=== PATIENT | female | born 1980 | race Caucasian/White ===

== ENCOUNTER 2022-05-18 00:58 | Day surgery (SDC) | payer OTHER, SELFPAY ==
[2022-05-14 09:22] VITALS: BMI 41.5
--- NOTE | 2022-05-14 09:27 | PC.NURSE ---
Report to the Outpatient Waiting Room, entrance under the green pavilion located off [facility], at time 12:30 on date 05/18/22. Planned Procedure Time: 2:30. Time changes happen often and if your time is changed the preop area will call you the afternoon before. - You and your visitor will be asked to self-screen and do not enter if you have any COVID symptoms. - Only one visitor is requested with a max of two and NO children visitors are allowed at this time. - The patient visitor may be requested to leave or wait in car when not with patient due to distancing restrictions. - A mask is optional within the hospital at this time. Patients may have clear liquids (water, carbonated beverages, clear teas, apple juice) until 3 hours prior to surgery (11:30) with a maximum of 20 ounces. - No food from midnight until time of surgery Take the following medications with a SIP of water the morning of surgery: ESCITALOPRAM, BUSPIRONE DO NOT STOP ANY OF YOUR OTHER PRESCRIPTION MEDICATIONS PRIOR TO SURGERY EXCEPT THE FOLLOWING Medications to discontinue per physician: N/A Date to take last dose: N/A Please no make-up, nail senegalese, hairspray, perfume, deodorant, or body powder the day of surgery. No jewelry (including any body piercings) or valuables the day of surgery, leave them at home. Please take a shower or bath the night before, or the morning of, surgery with an antibacterial soap. Wear comfortable, loose fitting clothing. - Jewelry must be removed prior to entering the operating room. Rings and piercings that are not removed may be cut off. - The hospital will not accept responsibility for valuables. - Please leave all valuables, including medications, at home the day of surgery. If you are going home after surgery, a licensed parts driver must drive you home. - NO public transportation without another adult if you receive anesthesia. - We recommend that an adult stay with you for 24 hours following discharge. - We also recommend that you do not drive, make important decision, drink alcoholic beverages, or take any drugs that were not prescribed by your health care provider for at least 24 hours after your discharge time. Follow any additional instructions given to you from your surgeon. If you or anyone in your household have experienced Covid symptoms in the past week, please notify your surgeon or the nurse liaison at the phone number below for possible testing. Telephone instructions given to PT - RHIANNON AYOUB and asked if any additional questions and then verbalized understanding. Patient advised to call surgeon office or pre surgery nurse liaison [phone] if any additional questions.
--- NOTE | 2022-05-16 16:30 | PM.IMHP ---
H&P: HPI History of Present Illness Date/Time: 05/16/22 16:30 Chief Complaint: Pelvic pain with right ovarian cyst Narrative: This is a 41-year-old female 2 para 2 admitted for laparoscopy with right ovarian cystectomy and possible right salpingo-oophorectomy. She has had pain discomfort and dyspareunia. Ultrasound shows right ovarian cyst. Risks and benefits including but not exclusive of , aspiration pneumonia, bleeding, transfusion, perforation injury to bowel, bladder, ureters, or other internal organs with need for open laparotomy repeated reviewed. She had all questions answered. She asked to proceed FOR[facility]LY [facility], [facility] Social History Social History Years smoked: 25 Smoking status: Current every day smoker Tobacco type: cigarettes Alcohol intake: current Alcohol use details: RARE Substance use: current Substance use type: marijuana Living arrangements: with family Additional living arrangements comments: CHILDREN Spiritual care concerns: No Meds Home Medications and Allergies Home Medications Medication Instructions Recorded Confirmed Type buspirone 5 mg tablet 5 mg PO DAILY 05/14/22 05/14/22 History escitalopram oxalate 20 mg tablet 20 mg PO DAILY 05/14/22 05/14/22 History omeprazole 20 mg tablet,delayed 20 mg PO DAILY 05/14/22 05/14/22 History release Allergies Allergy/AdvReac Type Severity Reaction Status Date / Time No Known Allergies Allergy Verified 05/14/22 09:20 Exam Const: General: cooperative, healthy appearing and comfortable Nutritional Appearance: overweight Orientation/consciousness: oriented to person, oriented to place and oriented to time Resp: Effort & Inspection: normal respiratory effort Cardio: Rate: regular rate Rhythm: regular rhythm Heart sounds: S1 normal heart sound present and S2 normal heart sound present GI: Inspection: normal to inspection Auscultation: normal bowel sounds : External Female Exam: normal external appearance Speculum Exam - Vagina: normal appearance of the vagina Speculum Exam - Cervix: normal appearance of the cervix Bimanual exam- vagina & uterus: non-tender Bimanual Exam- Adnexa, other: Adnexal mass present on the right tender Assessment and Plan Assessment and plan (1) Pelvic pain: Code(s): R10.2 - Pelvic and perineal pain Status: Acute (2) Right ovarian cyst: Code(s): N83.201 - Unspecified ovarian cyst, right side Status: Acute Plan Laparoscopy with right ovarian cystectomy and possible right salpingo-oophorectomy
[2022-05-18] VITALS (7 sets, daily range): BP systolic 113–153; BP diastolic 58–93; PULSE 49–86; RESP 12–20; TEMP 36.1–36.5; O2SAT 95–99
--- NOTE | 2022-05-18 05:26 | WPDHPUPDATE1 ---
History and Physical Update Update Date/Time: 05/18/22 05:26 History and Physical has been reviewed, including an updated exam of the patient. There are NO changes in the patient's condition. Risks, benefits, and alternatives have been discussed and questions answered. Patient agrees to proceed with procedure.
[2022-05-18] MEDS: ACETAMINOPHEN 500 MG TABLET 1000 MG PO (13:10)
[2022-05-18] MEDS: KETOROLAC 15 MG/ML VIAL (*BKC) IV PUSH (13:13)
[2022-05-18] MEDS: LACTATED RINGERS 1,000 ML 30 ML IV CONT ×2 (13:14→15:07)
[2022-05-18] MEDS: SCOPOLAMINE 1.5 MG PATCH TRANSDERM (13:14)
--- NOTE | 2022-05-18 13:30 | WPDANESEPPF ---
Anes - Initial Pre Proc Eval Procedure: Operation Date: 05/18/22 14:30 Proposed Procedures p Laparoscopic Right Ovarian Cystectomy - Raz Lopes MD Date/Time: 05/18/22 13:30 Surgeon: Raz Lopes MD Pre Op Diagnosis: Rt Ovarian Cyst, Pelvic Pain Patient Data Age: 41 Gender: F Height: 1.7 m Weight: 120.2 kg Allergies Allergy/AdvReac Type Severity Reaction Status Date / Time No Known Allergies Allergy Verified 05/14/22 09:20 Home Medications Medication Instructions Recorded Confirmed Type buspirone 5 mg tablet 5 mg PO DAILY 05/14/22 05/18/22 History escitalopram oxalate 20 mg tablet 20 mg PO DAILY 05/14/22 05/18/22 History omeprazole 20 mg tablet,delayed 20 mg PO DAILY 05/14/22 05/18/22 History release hydrocodone 5 mg-acetaminophen 325 1 tablet PO Q4H PRN pain #20 tabs 05/18/22 Rx mg tablet Patient hx anesthesia problems: none Family hx anesthesia problems: none Results Review: All pre-operative results and documents have been reviewed as part of the pre-operative evaluation. [facility] Past Medical History Medical History (Updated 05/18/22 @ 13:30 by Raz Reeder MD) Morbid obesity Social History Social History Years smoked: 25 Smoking status: Current every day smoker Tobacco type: cigarettes Alcohol intake: current Alcohol use details: RARE Substance use: current Substance use type: marijuana Living arrangements: with family Additional living arrangements comments: CHILDREN Spiritual care concerns: No Anes - Eval Final PreProcedure Day of Procedure 05/18/22 13:30 Patient weight: morbidly obese Heart: regular rate and rhythm Lungs: clear to auscultation Airway: Mallampati scale class II Neurological: alert and oriented Last oral intake: >/= 8 hours ASA classification: III Emergent: no Anesthetic plan: proceed Anesthesia type and monitoring: general ETT and standard monitoring Results Review: All pre-operative results and documents have been reviewed as part of the pre-operative evaluation. Informed Consent: The patient's anesthetic plan and its attendant risks and benefits were discussed with the patient/family/POA. Questions were solicited and answers provided to the satisfaction of the patient/family/POA.
--- NOTE | 2022-05-18 14:30 | W.PM.PROC2 ---
Procedure Note - Detailed Date of Procedure 05/18/22 Pre-op Diagnosis Rt Ovarian Cyst, Pelvic Pain Post-op Diagnosis Other (Bilateral ovarian cyst pelvic adhesions) Procedure Performed laparoscopic destruction of bilateral ovarian cyst Surgeon Raz Lopes MD Anesthesia General Indications is a 41-year-old female with pelvic pain dyspareunia and right ovarian cyst seen on ultrasound Findings uterus was extensively adherent to the anterior abdominal wall. There were bilateral follicular cysts present. Description of Procedure The patient was prepped draped in normal sterile fashion placed in the dorsal lithotomy position. Under excellent general trach anesthesia weighted speculum placed in posterior fornix vagina. Anterior lip of the cervix grasped with single-tooth tenaculum and the Spencer's cannula inserted the cervix. These 2 were attached used later for uterine uterine manipulation. The bladder was emptied of clear urine. The weighted speculum was removed and gloves were changed. An infraumbilical incision made the Veress needle passed in the abdomen. Abdomen filled with CO2 gas [id number]. The 5mm trocar advanced under direct visualization with the optic scope and no injury seen. Patient placed in Trendelenburg and the uterus was noted be markedly adherent anteriorly with the uterus. A left lower quadrant incision made the 5mm trocar advanced under direct visualization assuring no injury. Visualization showed large ovarian cyst bilaterally. These were sharply opened and drained of follicular fluid. The uterus was markedly adherent to the anterior portion of the abdominal wall which may account for a lot of her pelvic pain. Irrigation was undertaken to clear. The lower site removed. The gas removed from the abdomen. The upper site removed. The incisions closed with 4 Monocryl and glue. The patient was awakened went to recovery in satisfactory condition. All sponge, needle, instrument counts were correct. There were no immediate complications Estimated Blood Loss 5 Drains No Packing No Pathology None sent Complications No immediate complications Condition Stable Disposition PACU
[2022-05-18] MEDS: fentaNYL CITRATE INJ (*CRX) 100 MCG/2 ML VIAL 25 MCG IV PUSH ×4 (14:50→15:05)
[2022-05-18] MEDS: oxyCODONE HCL (*CRX) 5 MG TAB IR PO (15:36)
== END 2022-05-18 16:10 | disposition home or self-care (01) ==
PROVIDERS: PCP Physician Assistant; Visit Provider Obstetrics & Gynecology
PROC: (CPT 49320; principal; 2022-05-18 14:30)
DX: N83.02 Follicular cyst of left ovary (principal); N83.01 Follicular cyst of right ovary; R10.2 Pelvic and perineal pain; N94.10 Unspecified dyspareunia; F17.210 Nicotine dependence, cigarettes, uncomplicated; E66.01 Morbid (severe) obesity due to excess calories; Z68.41 Body mass index [BMI] 40.0-44.9, adult
CPT/HCPCS: 58662; 36415; 86850; 86900; 86901; A9270; J0330; J1100; J1885; J2250; J2405; J2704; J2710; J3010; J7120

== ENCOUNTER 2023-12-19 15:40 | Outpatient (CLI) | payer OTHER, SELFPAY ==
--- NOTE | ~2023-12-19 | MM_ITS ---
EXAMINATION: MM screening gustavo BI w bernard HISTORY: Screening mammogram TECHNIQUE: Craniocaudal and mediolateral oblique 3-D tomosynthesis images were obtained and synthetic 2-D images were generated. CAD analysis was submitted and interpreted. COMPARISON: No prior mammogram is available for comparison at this institution. BREAST PARENCHYMAL COMPOSITION:Not Dense. There are scattered areas of fibroglandular density. FINDINGS: No suspicious mass, calcification, or architectural distortion are identified in either patrick ast to suggest malignancy. There has been no suspicious interval change. IMPRESSION: No mammographic evidence of malignancy. Recommend routine screening mammography in one year. BI-RADS Category 1: Negative Reviewed, dictated and finalized at location .
== END 2023-12-19 15:41 | disposition home or self-care (01) ==
LOC: ANHIMG 15:40
PROVIDERS: PCP Physician Assistant; Visit Provider Obstetrics & Gynecology
DX: Z12.31 Encounter for screening mammogram for malignant neoplasm of breast (principal)
CPT/HCPCS: 77063; 77067

== ENCOUNTER 2024-01-19 17:00 | Emergency (ER) | payer OTHER, SELFPAY ==
--- NOTE | ~2024-01-19 | CT_ITS ---
CT of the Abdomen and Pelvis: Indication: Left hip hematoma Technique: 2.5 mm axial scans were obtained through the abdomen and pelvis following intravenous adm inistration of 100 cc of Omnipaque 350. Dose reduction technique was used on this scan by utilizing a utomated exposure control and iterative reconstruction technique. The dose-length product (DLP) was 1 598.92 mGy-cm. Findings: Scans through the lung bases are unremarkable. The liver, pancreas, adrenals and kidneys are within normal limits. Small gallstone present. There is a 3.5 cm low-attenuation mass in the spleen. No evidence of aortic aneurysm. No lymphadenopathy. No bowel obstruction or bowel wall thickening. There is no evidence to suggest acute appendicitis. Images through the pelvis were performed. 3.2 cm left adnexal cyst present with septation. No other a dnexal mass seen. No ascites. Urinary bladder unremarkable. There is a 13.0 x 7.7 x 6.2 cm hematoma at the subcutaneous soft tissues in the lower left back, with extensive infiltrative changes in the surrounding subcutaneous fat. There is a small blush of contra st at the inferior aspect of the hematoma (axial image 125, sagittal image [id number]), suggestive of ac tive extravasation. Impression: 13.0 x 7.7 x 6.2 cm hematoma in the subcutaneous soft tissues of the lower left back, as detailed abo ve, with small blush of contrast suggestive of active extravasation/bleeding. Cholelithiasis. Reviewed, dictated and finalized at [facility]. [employer] Impression: 13.0 x 7.7 x 6.2 cm hematoma in the subcutaneous soft tissues of the lower left back, as detailed above, with small blush of contrast suggestive of active ext ravasation/bleeding. Cholelithiasis.
--- NOTE | ~2024-01-19 | XR_ITS ---
EXAM: XR hip LT min 2V DATE: 01/19/2024 19:24 HISTORY: fall/LARGE BRUISE AND SWELLING ABOVE LEFT HIP, LAT-POSTERIOR . COMPARISON: None available. FINDINGS: Normal mineralization. No fracture or dislocation. No lytic or blastic lesion. Mild degene rative changes in the left hip. No erosion or periosteal change. Partially visualized left lateral so ft tissue contusion measuring at least 15 cm, partially included in the [id number]. IMPRESSION: No acute osseous finding in the left hip. Reviewed, dictated and finalized at location [facility]. RECLAIM PROCESSOR
[2024-01-19 17:02] VITALS: BP 142/94; PULSE 84; RESP 20; TEMP 36.4; O2SAT 97
--- NOTE | 2024-01-19 20:25 | ED_ITS ---
HPI - Extremity Injury (Lower) General Chief Complaint: Extremity Injury, Lower Stated Complaint: fall, hip pain Time Seen by Provider: 01/19/24 19:58 History of Present Illness HPI Narrative: 43-year-old female presents to the ED for left hip pain after ground level mechanical fall that occurred at 1:00 p.m. today. Patient states she was walking on the steps when she tripped and fell and landed on her left posterior hip. She did not hit her head or lose consciousness. She is not anticoagulated. She states at 1st there is a small bruise to the area and with time the area has gotten significantly larger, more painful and more swollen. She was given a mg of morphine in the ambulance prior to arrival. Related Data Home Medications Medication Instructions Recorded Confirmed buspirone 5 mg tablet 5 mg PO DAILY 05/14/22 05/18/22 escitalopram oxalate 20 mg tablet 20 mg PO DAILY 05/14/22 05/18/22 omeprazole 20 mg tablet,delayed 20 mg PO DAILY 05/14/22 05/18/22 release Allergies Allergy/AdvReac Type Severity Reaction Status Date / Time No Known Allergies Allergy Verified 05/14/22 09:20 Review of Systems Review of Systems: All systems reviewed & are unremarkable except as noted in HPI and below PMFSH Past Medical History Medical History Morbid obesity Social History Social History Years smoked: 25 Smoking status: Current every day smoker Tobacco type: cigarettes Alcohol intake: current Alcohol use details: RARE Substance use: current Substance use type: marijuana Living arrangements: with family Additional living arrangements comments: CHILDREN Spiritual care concerns: No Exam Narrative: GENERAL: Well-appearing, well-nourished, and in no acute distress. HEAD: Normocephalic, atraumatic. EYES: PERRLA and EOMI. ENT: Nares clear, no rhinorrhea or epistaxis. Mucous membranes moist. NECK: No midline cervical spinous tenderness, step-offs or deformities BACK: no midline thoracolumbar spinous tenderness, step-offs or deformities CHEST: Clear to auscultation. No respiratory distress. HEART: Regular rate and rhythm. No murmur heard. Normal peripheral pulses. ABDOMEN: Soft, nontender, nondistended, normal active bowel sounds. EXTREMITIES: Normal range of motion. No edema. SKIN: 10 cm right 25 cm area of ecchymosis with larger area of induration measuring 25 cm by 30 cm to the posterior left hip overlying the posterior aspect of the iliac crest with significant tenderness. NEURO: No focal deficits. Alert and oriented x3 Course Vital Signs Vital signs: Vital Signs Temperature 97.5 F L 01/19/24 17:02 Pulse Rate 84 01/19/24 17:02 Respiratory Rate 20 01/19/24 17:02 Blood Pressure 142/94 H 01/19/24 17:02 Pulse Oximetry 97 01/19/24 17:02 Oxygen Delivery Room Air 01/19/24 17:02 Temperature 98.2 F 01/19/24 21:50 Pulse Rate 83 01/19/24 21:50 Respiratory Rate 15 01/19/24 21:50 Blood Pressure 123/76 01/19/24 21:50 Pulse Oximetry 98 01/19/24 21:50 Oxygen Delivery Room Air 01/19/24 17:02 MDM - Extremity Injury (Lower) MDM Narrative Medical decision making narrative: 43-year-old female presents to the emergency department for left hip pain and hematoma after ground level mechanical fall that occurred at 1:00 p.m. today. See HPI for further history. She did not hit her head or lose consciousness. Vitals are stable. Exam significant for large hematoma to the left posterior hip overlying the posterior aspect of the iliac crest. x-ray shows no acute osseous findings. Given the size of the large hematoma, will obtain lab work and CT abdomen pelvis with contrast. CBC with mild leukocytosis of 12.8, hemoglobin is 11.8, no prior for comparison. Chemistries are unremarkable. HCG negative. CT abdomen pelvis shows a left posterior lateral body wall contusion with a 13 x 7 x 7 cm hematoma, otherwise no acute findings. Patient and family at bedside updated on workup. She is ambulatory. Shared decision making regarding admission for observation to ensure hematoma does not increase in size and pain control verses discharged home with close follow-up and self observation. Patient is requesting to be discharged home. the hematoma was wrapped with an Gil wrap to provide compression she was given Syos[place] for pain. Syosset sent to pharmacy. Discussed strict ED return precautions and close follow-up with PCP. She is agreeable with the plan and verbalized understanding. Discharged in stable condition. Lab Data 01/19/24 20:51 01/19/24 20:51 Labs: Lab Results 01/19/24 Range/Units 20:51 WBC 12.8 H (4.5-10.0) K/mm3 RBC 3.88 L (4.2-5.4) M/mm3 Hgb 11.8 L (12.0-15.0) g/dL Hct 35.3 L (37.0-47.0) % MCV 91.0 (80-100) fl MCH 30.4 (26-34) pg MCHC 33.4 (32-36) g/dl RDW 13.0 (11.5-14.5) % Plt Count 248 (150-375) k/mm3 MPV 10.2 (7.4-10.4) fl Immature Gran % (Auto) 0.5 (0-0.5) % Neut % (Auto) 76.7 H (45.5-73.1) % Lymph % (Auto) 13.3 L (18.3-44.2) % [place] % (Auto) 8.8 H (2.6-8.5) % Eos % (Auto) 0.2 (0-4.4) % Baso % (Auto) 0.5 (0.2-1.2) % Lymph # (Auto) 1.70 (0.9-3.2) K/mm3 [place] # (Auto) 1.1 H (0.1-0.6) K/mm3 Eos # (Auto) 0.0 (0-0.3) K/mm3 Baso # (Auto) 0.1 (0.0-0.1) K/mm3 Abs Immat Gran (auto) 0.07 H (0.00-0.031) K/mm3 Absolute Neuts (auto) 9.8 H (1.3-6.7) K/mm3 Absolute Nucleated RBC 0.000 (0.0-0.012) K/mm3 Nucleated RBC % 0.0 (0.0-0.2) % Sodium 134 L (137-145) mmol/L Potassium 3.8 (3.4-5.0) mmol/L Chloride 105 (98-107) mmol/L Carbon Dioxide 26 (22-30) mmol/L Anion Gap 3 L (4-12) mmol/L BUN 11 (7-17) mg/dL Creatinine 0.90 (0.7-1.0) mg/dL Estim Creat Clear Calc Not Reportable Estimated GFR > 60 (59 - ) Glucose 110 (65-110) mg/dL Calcium 8.5 (8.4-10.2) mg/dL Serum HCG, Qual Negative Discharge Plan Discharge Clinical Impression: Hematoma Patient Disposition: Home, Self-Care Condition: Stable Instructions: Antibiotic Form, Hematoma (ED) Additional Instructions: You were evaluated in the emergency department after a fall. Your found have a very large hematoma to her left hip. We discussed having the stay in the hospital however you declined. Please make sure to keep the area compressed, ice and follow-up closely with her PCP. Take the pain medications as needed. R eturn to the emergency department if the area becomes significantly larger, you developed lightheadedness, shortness of breath, chest pain, loss of consciousness or other concerning symptoms. Prescriptions: New hydrocodone-acetaminophen 5-325 mg tablet 1 tablet PO Q8H PRN (Reason: pain) Qty: 14 0RF No Action buspirone 5 mg Tablet 5 mg PO DAILY escitalopram oxalate 20 mg Tablet 20 mg PO DAILY omeprazole 20 mg Tablet,Delayed Release (Dr/Ec) 20 mg PO DAILY hydrocodone-acetaminophen 5-325 mg tablet 1 tablet PO Q4H PRN (Reason: pain) Qty: 20 0RF Follow-up/Referrals: Ward,KATERYNA Brown [Primary Care Provider] -
[2024-01-19 20:59] LABS: Basophils Absolute Auto 0.1 K/mm3 (0.0-0.1); Basophils Percent Auto 0.5 % (0.2-1.2); Eosinophils Percent Auto 0.2 % (0-4.4); Hematocrit 35.3 % (37.0-47.0); Hemoglobin 11.8 g/dL (12.0-15.0); Immature Granulocyte Absolute 0.07 K/mm3 (0.00-0.031); Immature Granulocyte Percent A 0.5 % (0-0.5); Lymphocytes Percent Auto 13.3 % (18.3-44.2); Mean Corpuscular HGB Conc 33.4 g/dl (32-36); Mean Corpuscular Hemoglobin 30.4 pg (26-34); Mean Platelet Volume 10.2 fl (7.4-10.4); Monocytes Absolute Auto 1.1 K/mm3 (0.1-0.6); Monocytes Percent Auto 8.8 % (2.6-8.5); Neutrophils Absolute Auto 9.8 K/mm3 (1.3-6.7); Neutrophils Percent Auto 76.7 % (45.5-73.1); Platelet Count Result 248 k/mm3 (150-375); Red Blood Count 3.88 M/mm3 (4.2-5.4); White Blood Count 12.8 K/mm3 (4.5-10.0)
[2024-01-19 21:16] LABS: Anion Gap 3 mmol/L (4-12); Blood Urea Nitrogen 11 mg/dL (7-17); Calcium 8.5 mg/dL (8.4-10.2); Carbon Dioxide 26 mmol/L (22-30); Chloride 105 mmol/L (98-107); Estimated Glomerular Filt Rate > 60; Glucose 110 mg/dL (65-110); Potassium 3.8 mmol/L (3.4-5.0); Sodium 134 mmol/L (137-145)
[2024-01-19 21:28] LABS: SPREG INTERNAL CONTROL Positive; Serum Qual hCG Negative
[2024-01-19 21:50] VITALS: BP 123/76; PULSE 83; RESP 15; TEMP 36.8; O2SAT 98
[2024-01-19] MEDS: HYDROcodone/acetaminophen (*CRX) 5-325 MG TABLET 1 TAB PO (23:12)
== END 2024-01-19 23:20 | disposition home or self-care (01) ==
PROVIDERS: Emergency Provider Physician Assistant; PCP Physician Assistant
DX: S70.02XA Contusion of left hip, initial encounter (principal); E66.01 Morbid (severe) obesity due to excess calories; Z68.41 Body mass index [BMI] 40.0-44.9, adult; F17.210 Nicotine dependence, cigarettes, uncomplicated; W10.9XXA Fall (on) (from) unspecified stairs and steps, initial encounter; K80.20 Calculus of gallbladder without cholecystitis without obstruction
CPT/HCPCS: 36415; 73502; 74177; 80048; 84703; 85025; 99284; A9270; Q9967

== ENCOUNTER 2024-06-08 16:38 | Outpatient (CLI) | payer OTHER, SELFPAY ==
[2024-06-08 16:58] LABS: Basophils Absolute Auto 0.1 K/mm3 (0.0-0.1); Basophils Percent Auto 0.8 % (0.2-1.2); Eosinophils Absolute Auto 0.2 K/mm3 (0-0.3); Eosinophils Percent Auto 2.3 % (0-4.4); Hematocrit 37.3 % (37.0-47.0); Immature Granulocyte Absolute 0.03 K/mm3 (0.00-0.031); Immature Granulocyte Percent A 0.3 % (0-0.5); Lymphocytes Absolute Auto 2.28 K/mm3 (0.9-3.2); Mean Corpuscular HGB Conc 32.2 g/dl (32-36); Mean Corpuscular Hemoglobin 28.9 pg (26-34); Mean Corpuscular Volume 89.9 fl (80-100); Mean Platelet Volume 10.1 fl (7.4-10.4); Monocytes Absolute Auto 0.8 K/mm3 (0.1-0.6); Monocytes Percent Auto 8.8 % (2.6-8.5); Neutrophils Absolute Auto 5.4 K/mm3 (1.3-6.7); Neutrophils Percent Auto 61.8 % (45.5-73.1); Platelet Count Result 224 k/mm3 (150-375); Red Blood Count 4.15 M/mm3 (4.2-5.4); Red Cell Distribution Width 13.9 % (11.5-14.5); White Blood Count 8.8 K/mm3 (4.5-10.0)
--- OUTSIDE RECORDS SUMMARY | 2024-06-08 17:57 | XMS_ITS | Data Portability ---
Author Organization [facility] [employer], Main Office Address [address] [place] [address] Assessment No assessment recorded. Plan of Treatment Reminders Order Date Submit Date Provider Last Modified By Organization Details Last Modified Time Details Appointments None recorded. Lab None recorded. Referral None recorded. Procedures None recorded. Surgeries None recorded. Imaging None recorded. Medication Orders phentermine 37.5 mg tablet 2022 023 nmCertus Groupssi4 [id number], [id number] [facility], [place], [place], [id number], 3 23:04:59 Patient TargetsNo targets recorded. Patient InstructionsNo instructions recorded. Reason for Referral None Reported. Results Created Date Observation Date Name Description Value Unit Range Abnormal Flag Note LastModifiedBy Organization Detail LastModifiedTime 07/12/19 22 07/12/2021 INSUL IN insulin 9.4 uIU/m L normal Refer ence Range < or = 19.6 Risk: Optim al < or = 19.6 Moder ate NA High >19.6 Adult cardi ovasc ular event risk categ ory cut point s (opti mal, moder ate, high) are based on [facility] popul ation data from 02/06 11. This insul in assay shows stron g cross -reac tivit y for some insul in analo gs (lisp ro, aspar t, and glarg ine) and much lower cross -reac tivit y with other s (dete karin, gluli sine) . Not Available [employer] [facility] [address] [place], [address], 07/12/2021 16:23:05 07/12/19 22 07/12/2021 CBC (INCL UDES DIFF/ PLT) white blood cell count 7.0 thous and/u L 3.8-10 .8 normal Not Available [address], [address], 07/12/2021 16:23:04 07/12/19 22 07/12/2021 CBC (INCL UDES DIFF/ PLT) red blood cell count 4.43 jamarcus on/uL 3.80-5 .10 normal Not Available [address], [address], 07/12/2021 16:23:04 07/12/19 22 07/12/2021 CBC (INCL UDES DIFF/ PLT) hemoglobin 13.7 g/dL 11.7-1 5.5 normal Not Available [address], [address], 07/12/2021 16:23:04 07/12/19 22 07/12/2021 CBC (INCL UDES DIFF/ PLT) hematocrit 41.8 % 35.0-4 5.0 normal Not Available [address], [address], 07/12/2021 16:23:04 07/12/19 22 07/12/2021 CBC (INCL UDES DIFF/ PLT) MCV 94.4 fL 80.0-1 00.0 normal Not Available [address], [address], 07/12/2021 16:23:04 07/12/19 22 07/12/2021 CBC (INCL UDES DIFF/ PLT) MCH 30.9 pg 27.0-3 3.0 normal Not Available [address], [address], 07/12/2021 16:23:04 07/12/19 22 07/12/2021 CBC (INCL UDES DIFF/ PLT) MCHC 32.8 g/dL 32.0-3 6.0 normal Not Available [address], [address], 07/12/2021 16:23:04 07/12/19 22 07/12/2021 CBC (INCL UDES DIFF/ PLT) RDW 12.1 % 11.0-1 5.0 normal Not Available [address], [address], 07/12/2021 16:23:04 07/12/19 22 07/12/2021 CBC (INCL UDES DIFF/ PLT) platelet count 252 thous and/u L 140-40 0 normal Not Available [address], [address], 07/12/2021 16:23:04 07/12/19 22 07/12/2021 CBC (INCL UDES DIFF/ PLT) MPV 10.8 fL 7.5-12 .5 normal Not Available [address], [address], 07/12/2021 16:23:04 07/12/19 22 07/12/2021 CBC (INCL UDES DIFF/ PLT) absolute neutrophils 4984 cells /uL 1500-7 800 normal Not Available [address], [address], 07/12/2021 16:23:04 07/12/19 22 07/12/2021 CBC (INCL UDES DIFF/ PLT) absolute lymphocytes 1225 cells /uL 850-39 00 normal Not Available [address], [address], 07/12/2021 16:23:04 07/12/19 22 07/12/2021 CBC (INCL UDES DIFF/ PLT) absolute monocytes 602 cells /uL 200-95 0 normal Not Available [address] [place], [address], 07/12/2021 16:23:04 07/12/19 22 07/12/2021 CBC (INCL UDES DIFF/ PLT) absolute eosinophils 119 cells /uL 15-500 normal Not Available [facility] [address], [address], 07/12/2021 16:23:04 07/12/19 22 07/12/2021 CBC (INCL UDES DIFF/ PLT) absolute basophils 70 cells /uL 0-200 normal Not Available [facility] [address], [address], 07/12/2021 16:23:04 07/12/19 22 07/12/2021 CBC (INCL UDES DIFF/ PLT) neutrophils 71.2 % normal Not Available [facility] [address], [address], 07/12/2021 16:23:04 07/12/19 22 07/12/2021 CBC (INCL UDES DIFF/ PLT) lymphocytes 17.5 % normal Not Available [facility] [address], [address], 07/12/2021 16:23:04 07/12/19 22 07/12/2021 CBC (INCL UDES DIFF/ PLT) monocytes 8.6 % normal Not Available [facility] [address], [address], 07/12/2021 16:23:04 07/12/19 22 07/12/2021 CBC (INCL UDES DIFF/ PLT) eosinophils 1.7 % normal Not Available [facility] [address], [address], 07/12/2021 16:23:04 07/12/19 22 07/12/2021 CBC (INCL UDES DIFF/ PLT) basophils 1.0 % normal Not Available [facility] [address], [address], 07/12/2021 16:23:04 07/12/19 22 07/12/2021 TSH W/REF MICHELLE TO FT4 TSH w/reflex to FT4 1.06 mIU/L normal Refer ence Range > or = 20 Years 0.40- 4.50 Pregn yulia Range s First trime ster 0.26- 2.66 Secon d trime ster 0.55- 2.73 Third trime ster 0.43- 2.91 Not Available [facility] [address] [address], [place], [address], 07/12/2021 16:23:03 07/12/19 22 07/12/2021 HEMOG LOBIN A1C hemoglobin A1C 5.2 %_of_ total _HGB <5.7 normal For the purpo se of screniurka guido for the prese nce of diabe kaur: <5.7% Consi stent with the absen ce of diabe kaur 5.7-6 .4% Consi stent with incre ased risk for diabe kaur (pred iabet es) > or =6.5% Consi stent with diabe kaur This assay resul t is consi stent with a decre ased risk of diabe kaur. Curre ntly, no conse nsus exist s jose menendez use of hemog lobin A1c for diagn osis of diabe kaur in child taran. Accor ding to Ameri can Diabe kaur Ass[employer] iatio n (ADA) guide lines , hemog lobin A1c <7.0% repre sents optim al contr ol in non-p regna nt diabe tic patie nts. Diffe rent metri cs may apply to speci fic patie nt popul ation s. Stand ards of Medic al Care in Diabe kaur(A DA). Not Available [facility] [address], [place], [address], 07/12/2021 16:23:03 07/12/19 22 07/12/2021 COMPR EHENS JOHN METAB OLIC PANEL glucose 88 mg/dL 65-99 normal Fasti ng refer ence inter joyce Not Available [facility] [address], [address], 07/12/2021 16:23:02 07/12/19 22 07/12/2021 COMPR EHENS JOHN METAB OLIC PANEL urea nitrogen (BUN) 10 mg/dL 7-25 normal Not Available [address], [address], 07/12/2021 16:23:02 07/12/19 22 07/12/2021 COMPR EHENS JOHN METAB OLIC PANEL creatinine 0.81 mg/dL 0.50-1 .10 normal Not Available [address], [address], 07/12/2021 16:23:02 07/12/19 22 07/12/2021 COMPR EHENS JOHN METAB OLIC PANEL eGFR non-afr. citizen of [place] 91 mL/mi n/1.7 3m2 > or = 60 normal Not Available [address], [address], 07/12/2021 16:23:02 07/12/19 22 07/12/2021 COMPR EHENS JOHN METAB OLIC PANEL eGFR 106 mL/mi n/1.7 3m2 > or = 60 normal Not Available [address], [address], 07/12/2021 16:23:02 07/12/19 22 07/12/2021 COMPR EHENS JOHN METAB OLIC PANEL BUN/creatini ne ratio not applic able (calc ) 6-22 Not Available [address], [address], 07/12/2021 16:23:02 07/12/19 22 07/12/2021 COMPR EHENS JOHN METAB OLIC PANEL sodium 142 mmol/ L 135-14 6 normal Not Available [address], [address], 07/12/2021 16:23:02 07/12/19 22 07/12/2021 COMPR EHENS JOHN METAB OLIC PANEL potassium 4.0 mmol/ L 3.5-5. 3 normal Not Available [address], [address], 07/12/2021 16:23:02 07/12/19 22 07/12/2021 COMPR EHENS JOHN METAB OLIC PANEL chloride 107 mmol/ L 98-110 normal Not Available [address], [address], 07/12/2021 16:23:02 07/12/19 22 07/12/2021 COMPR EHENS JOHN METAB OLIC PANEL carbon dioxide 26 mmol/ L 20-32 normal Not Available [address], [address], 07/12/2021 16:23:02 07/12/19 22 07/12/2021 COMPR EHENS JOHN METAB OLIC PANEL calcium 8.4 mg/dL 8.6-10 .2 low Not Available [address], [address], 07/12/2021 16:23:02 07/12/19 22 07/12/2021 COMPR EHENS JOHN METAB OLIC PANEL protein, total 6.2 g/dL 6.1-8. 1 normal Not Available [address], [address], 07/12/2021 16:23:02 07/12/19 22 07/12/2021 COMPR EHENS JOHN METAB OLIC PANEL albumin 4.1 g/dL 3.6-5. 1 normal Not Available [address], [address], 07/12/2021 16:23:02 07/12/19 22 07/12/2021 COMPR EHENS JOHN METAB OLIC PANEL globulin 2.1 g/dL_ (calc ) 1.9-3. 7 normal Not Available [address], [address], 07/12/2021 16:23:02 07/12/19 22 07/12/2021 COMPR EHENS JOHN METAB OLIC PANEL albumin/glob ulin ratio 2.0 (calc ) 1.0-2. 5 normal Not Available [address], [address], 07/12/2021 16:23:02 07/12/19 22 07/12/2021 COMPR EHENS JOHN METAB OLIC PANEL bilirubin, total 0.9 mg/dL 0.2-1. 2 normal Not Available [address], [address], 07/12/2021 16:23:02 07/12/19 22 07/12/2021 COMPR EHENS JOHN METAB OLIC PANEL alkaline phosphatase 67 U/L 31-125 normal Not Available [address], [address], 07/12/2021 16:23:02 07/12/19 22 07/12/2021 COMPR EHENS JOHN METAB OLIC PANEL AST 11 U/L 10-30 normal Not Available [address], [address], 07/12/2021 16:23:02 07/12/19 22 07/12/2021 COMPR EHENS JOHN METAB OLIC PANEL ALT 8 U/L 6-29 normal Not Available [address], [address], 07/12/2021 16:23:02 07/12/19 22 07/12/2021 LIPID PANEL , STAND AUNG cholesterol, total 155 mg/dL <200 normal Not Available [address], [address], 07/12/2021 16:23:01 07/12/19 22 07/12/2021 LIPID PANEL , STAND AUNG HDL cholesterol 52 mg/dL > or = 50 normal Not Available [address], [address], 07/12/2021 16:23:01 07/12/19 22 07/12/2021 LIPID PANEL , STAND AUNG triglyceride s 75 mg/dL <150 normal Not Available [address], [address], 07/12/2021 16:23:01 07/12/19 22 07/12/2021 LIPID PANEL , STAND AUNG LDL-choleste rol 87 mg/dL _(suraj c) normal Refer ence range : <100 Rae able range <100 mg/dL for prima ry preve ntion ; <70 mg/dL for patie nts with CHD or diabe tic patie nts with > or = 2 CHD risk facto rs. LDL-C is now calcu lated using the Radha montes-Hop kins calcu yesika n, which is a valid ated novel metho d provi ding annamaria r accur acy than the Fried maldonado equat ion in the estim ation of LDL-C . Radha montes SS et al. HERBIE. 2013; 310(1 9): 2061- 2068 (http ://ed ucati on.Yvette Calix Nubity. com/f aq/FA Q164) Not Available [address], [address], 07/12/2021 16:23:01 07/12/19 22 07/12/2021 LIPID PANEL , STAND AUNG chol/HDLC ratio 3.0 (calc ) <5.0 normal Not Available [address], [address], 07/12/2021 16:23:01 07/12/19 22 07/12/2021 LIPID PANEL , STAND AUNG non HDL cholesterol 103 mg/dL _(suraj c) <130 normal For patie nts with diabe kaur plus 1 major ASCVD risk facto r, treat ing to a non-H DL-C goal of <100 mg/dL (LDL- C of <70 mg/dL ) is consi shi powell n. Not Available [address], [address], 07/12/2021 16:23:01 07/20/19 22 07/20/2021 REFLE XIVE URINE CULTU RE reflexive urine culture NO CULTU RE INDIC ATED Not Available [address], [address], 07/20/2021 07:34:57 07/20/19 22 07/20/2021 URINA LYSIS , COMPL ETE W/REF MICHELLE TO CULTU RE color yellow yellow normal Not Available [address], [address], 07/20/2021 07:34:55 07/20/19 22 07/20/2021 URINA LYSIS , COMPL ETE W/REF MICHELLE TO CULTU RE appearance clear clear normal Not Available [address], [address], 07/20/2021 07:34:55 07/20/19 22 07/20/2021 URINA LYSIS , COMPL ETE W/REF MICHELLE TO CULTU RE specific gravity 1.008 1.001- 1.035 normal Not Available [address], [address], 07/20/2021 07:34:55 07/20/19 22 07/20/2021 URINA LYSIS , COMPL ETE W/REF MICHELLE TO CULTU RE pH 5.5 5.0-8. 0 normal Not Available [address], [address], 07/20/2021 07:34:55 07/20/19 22 07/20/2021 URINA LYSIS , COMPL ETE W/REF MICHELLE TO CULTU RE glucose negati ve negati ve normal Not Available [place] [address] [place], [address], 07/20/2021 07:34:55 07/20/19 22 07/20/2021 URINA LYSIS , COMPL ETE W/REF MICHELLE TO CULTU RE bilirubin negati ve negati ve normal Not Available [address] [place], [address], 07/20/2021 07:34:55 07/20/19 22 07/20/2021 URINA LYSIS , COMPL ETE W/REF MICHELLE TO CULTU RE ketones negati ve negati ve normal Not Available [address], [address], 07/20/2021 07:34:55 07/20/19 22 07/20/2021 URINA LYSIS , COMPL ETE W/REF MICHELLE TO CULTU RE occult blood negati ve negati ve normal Not Available [address] [facility] [place], [address], 07/20/2021 07:34:55 07/20/19 22 07/20/2021 URINA LYSIS , COMPL ETE W/REF MICHELLE TO CULTU RE protein negati ve negati ve normal Not Available [address] [place], [address], 07/20/2021 07:34:55 07/20/19 22 07/20/2021 URINA LYSIS , COMPL ETE W/REF MICHELLE TO CULTU RE nitrite negati ve negati ve normal Not Available [facility] [address] [place], [address], 07/20/2021 07:34:55 07/20/19 22 07/20/2021 URINA LYSIS , COMPL ETE W/REF MICHELLE TO CULTU RE leukocyte esterase negati ve negati ve normal Not Available [facility] [address] [place], [address], 07/20/2021 07:34:55 07/20/19 22 07/20/2021 URINA LYSIS , COMPL ETE W/REF MICHELLE TO CULTU RE WBC none seen /hpf < or = 5 normal Not Available [address] [place], [address], 07/20/2021 07:34:55 07/20/19 22 07/20/2021 URINA LYSIS , COMPL ETE W/REF MICHELLE TO CULTU RE RBC none seen /hpf < or = 2 normal Not Available [facility] [address] [place], [address], 07/20/2021 07:34:55 07/20/19 22 07/20/2021 URINA LYSIS , COMPL ETE W/REF MICHELLE TO CULTU RE squamous epithelial cells none seen /hpf < or = 5 normal Not Available [address], [address], 07/20/2021 07:34:55 07/20/19 22 07/20/2021 URINA LYSIS , COMPL ETE W/REF MICHELLE TO CULTU RE bacteria none seen /hpf none seen normal Not Available [address], [address], 07/20/2021 07:34:55 07/20/19 22 07/20/2021 URINA LYSIS , COMPL ETE W/REF MICHELLE TO CULTU RE hyaline cast none seen /lpf none seen normal Not Available [address], [address], 07/20/2021 07:34:55 Result Notes None recorded. Problems Name Problem SNOMED Code Status Onset Date Resolution Date Notes Provider Name and Address Organization Details Recorded Time Intermittent dysphagia 73780908 Active 2021 Not Available [facility] 3 04:51:15 Generalized anxiety disorder 55760479 Active Not Available [facility] 3 04:51:15 Chronic constipation 561516583 Active Not Available [facility] 3 04:51:15 Vitamin D deficiency 53299638 Active Not Available [facility] 3 04:51:15 Acid reflux 272483897 Active 2021 Not Available [facility] 3 04:51:15 Problem Notes None recorded. Procedures Surgical History Date Name Laterality Status Provider Name and Address Organization Details Recorded Time 07/05/19 Date of Last Colonoscopy completed Not Available [facility] 04/18/2022 04:43:00 Tonsillectomy completed Not Available [facility] 04/18/2022 04:43:03 completed Not Available [place] [address] 04/18/2022 04:43:03 completed Not Available [place] [address] 04/18/2022 04:43:03 Imaging Results None recorded. Procedure Notes None recorded. Medical Equipment None Reported. Allergies No known drug allergies Medications Name Sig Start Date Stop Date Status Note LastModified by Organization Details LastModified Time buspirone 5 mg tablet TAKE 1 TABLET BY MOUTH 2 TO 3 TIMES DAILY active Not Available Not Available No t Available alprazola m 1 mg tablet 09/21 completed Not Available Not Available Not Available hydrocodo ne 5 mg-acetam inophen 325 mg tablet 09/21 completed Not Available Not Available Not Available meloxicam 15 mg tablet 09/21 completed Not Available Not Available Not Available sertralin e 100 mg tablet TAKE 1 AND 1/2 TABLETS BY MOUTH EVERY DAY 04/24 completed Not Available Not Available Not Available phentermi ne 37.5 mg tablet Take 1 tablet every day by oral route. 2022 active Not Available Not Available Not Avai lable omeprazol e 40 mg capsule,d elayed release Take by oral route for 30 days. 09/03 completed Not Available Not Available Not Available alprazola m 0.25 mg tablet TAKE 1 TABLET BY MOUTH TWICE DAILY NEEDED active Not Available Not Available No t Available pantopraz ole 40 mg tablet,de layed release Take 1 tablet every day by oral route. 2022 active Not Available Not Available Not Avai lable promethaz ine 25 mg tablet Take 1 tablet every 4-6 hours by oral route as needed. active Not Available Not Available No t Available ergocalci ferol (vitamin D2) 1,250 mcg (50,000 unit) capsule TAKE ONE CAPSULE BY MOUTH EVERY WEEK 05/24 completed Not Available Not Available Not Available cefuroxim e axetil 500 mg tablet Take 1 tablet every 12 hours by oral route. active Not Available Not Available No t Available methylpre dnisolone 4 mg tablets in a dose pack TK UTD 07/27 completed Not Available Not Available Not Available sertralin e 50 mg tablet TAKE 1 TABLET BY MOUTH EVERY DAY IN THE EVENING 05/28 completed Not Available Not Available Not Available naproxen 500 mg tablet active Not Available Not Available Not Available neomycin- polymyxin -hydrocor t 3.5 mg-10,000 unit/mL-1 % ear drops,page p INSTILL 4 DROPS INTO Right ear BY OTIC ROUTE 3 TIMES PER DAY 11/26 completed Not Available Not Available Not Available Bactrim DS 800 mg-160 mg tablet Take 1 tablet every 12 hours by oral route. 11/26 completed Not Available Not Available Not Available escitalop sj 20 mg tablet TAKE 1 TABLET BY MOUTH EVERY DAY 2023 active Not Available Not Available Not Avai lable pregabali n 75 mg capsule active Not Available Not Available Not Available peg 3350 240 gram-elec trolytes 22.72 gram-6.72 g-5.84 g powdr for soln 06/05 completed Not Available Not Available Not Available Vienva 0.1 mg-20 mcg tablet TK 1 T PO QD 04/24 completed control Not Available Not Available Not Available Slynd 4 mg (28) tablet Take 1 tablet every day by oral route for 28 days. 09/07 completed Not Available Not Available Not Available Vitals Date Recorded Body mass index (BMI) Body height Oxygen saturation Oxygen saturation in Arterial blood by Pulse oximetry Heart rate Respiratory rate Body temperature Body weight Systolic blood pressure Diastolic blood pressure Provider Name and Address Organization Details Last Updated DateTime 2 40.9 kg/m2 170.815 cm 97 % 97 % 78 /min 16 /min 97.6 [degF] 458311. 79 g 128 mm[Hg] 80 mm[Hg] Not Available [facility] 3 04:48:08 Date Recorded Body mass index (BMI) Body height Oxygen saturation Oxygen saturation in Arterial blood by Pulse oximetry Heart rate Respiratory rate Body temperature Body weight Systolic blood pressure Diastolic blood pressure Provider Name and Address Organization Details Last Updated DateTime 2 41 kg/m2 170.82 cm 97 % 97 % 68 /min 16 /min 98 [degF] 124724. 39 g 124 mm[Hg] 68 mm[Hg] Not Available [facility] 3 04:48:08 Date Recorded Body mass index (BMI) Body height Oxygen saturation Oxygen saturation in Arterial blood by Pulse oximetry Heart rate Respiratory rate Body weight Systolic blood pressure Diastolic blood pressure Provider Name and Address Organization Details Last Updated DateTime 2 41 kg/m2 170.82 cm 97 % 97 % 68 /min 16 /min 378129. 39 g 122 mm[Hg] 82 mm[Hg] Not Available [facility] 3 04:48:08 Date Recorded Body height Body mass index (BMI) Body weight Body temperature Heart rate Oxygen saturation Oxygen saturation in Arterial blood by Pulse oximetry Systolic blood pressure Diastolic blood pressure Provider Name and Address Organization Details Last Updated DateTime 3 170.82 cm 42.3 kg/m2 563305. 12 g 98.4 [degF] 73 /min 97 % 97 % 128 mm[Hg] 82 mm[Hg] Shanell Fagan RN [employer] 3 14:15:34 Date Recorded Systolic blood pressure Diastolic blood pressure Provider Name and Address Organization Details Last Updated DateTime 07/27/2022 120 mm[Hg] 80 mm[Hg] ERIK Castillo [address] [place] [address], [address], [address], [facility] 07/27/2022 14:34:16 Date Recorded Body height Body temperature Body mass index (BMI) Body weight Respiratory rate Oxygen saturation Oxygen saturation in Arterial blood by Pulse oximetry Heart rate Systolic blood pressure Diastolic blood pressure Provider Name and Address Organization Details Last Updated DateTime 3 170.82 cm 98.1 [degF] 42.3 kg/m2 641899. 12 g 16 /min 98 % 98 % 74 /min 140 mm[Hg] 80 mm[Hg] SARAH Davis [facility] 3 14:20:54 Social History Question Answer Notes LastModified by Organizat ion Details LastModified Time Tobacco Smoking Status Current Every Day Smoker Not Available [facility] 04/18/2022 04:42:12 What Is Your Level Of Alcohol Consumption? Occasional [id number] Information not available 04/18/2022 What Is Your Level Of Caffeine Consumption? Heavy Tea/daily MIGRATION.49744 [id number] Information not available 04/18/2022 How Much Tobacco Do You Chew? None MIGRATION.30227 [id number] Information not available 04/18/2022 In The 14 Days Before Symptom Onset, Have You Had Close Contact With A Laboratory-confir med COVID-19 While That Case Was Ill? No MIGRATION.82158 [id number] Information not available 04/18/2022 In The 14 Days Before Symptom Onset, Have You Had Close Contact With A Person Who Is Under Investigation For COVID-19 While That Person Was Ill? No MIGRATION.24639 [id number] Information not available 04/18/2022 Are You Currently Employed? Yes [email or web address] Information not available 09/20/2022 What Type Of Diet Are You Following? REGULAR MIGRATION.11295 [id number] Information not available 04/18/2022 Which Illicit Or Recreational Drugs Have You Used? None MIGRATION.58644 [id number] Information not available 04/18/2022 Do You Or Have You Ever Used E-cigarettes Or Vape? 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 No MIGRATION.15519 86901 Information not available 04/18/2022 Do You Use Insect Repellent Routinely? No MIGRATION.63653 78560 Information not available 04/18/2022 What Is Your Relationship Status? MIGRATION.55556 [id number] Information not available 04/18/2022 Do You Use Your Seat Belt Or Car Seat Routinely? Yes MIGRATION.29808 04619 Information not available 04/18/2022 Do You Have Smoke And Carbon Monoxide Detectors In Your Home? Yes MIGRATION.04795 [id number] Information not available 04/18/2022 At What Age Did You Start Smoking Tobacco? 17 MIGRATION.89898 05802 Information not available 04/18/2022 Are You Passively Exposed To Smoke? No MIGRATION.56572 06654 Information not available 04/18/2022 Do You Or Have You Ever Used Smokeless Tobacco? Never Used Smokeless Tobacco MIGRATION.16989 [id number] Information not available 04/18/2022 How Much Tobacco Do You Smoke? 0.25 PPD MIGRATION.92613 11568 Information not available 04/18/2022 Do You Use Any Illicit Or Recreational Drugs? No MIGRATION.16184 22093 Information not available 04/18/2022 Do You Use Sunscreen Routinely? Yes MIGRATION.90597 [id number] Information not available 04/18/2022 Have You Recently Traveled Abroad? No MIGRATION.20906 86396 Information not available 04/18/2022 Do You Have Any Dietary Restrictions? No MIGRATION.98377 [id number] Information not available 04/18/2022 Do You Or Have You Ever Used Any Other Forms Of Tobacco Or Nicotine? No MIGRATION.37146 52501 Information not available 04/18/2022 Sex: Unknown Functional Status Question Answer Note LastModified by Organizat ion Details LastModified Time What is your exercise level? Occasional [id number] Information not available 04/18/2022 Mental Status None recorded. Family History Relationship Description Onset Age of this Age Resolved Age Notes LastModified by Organization Details LastModified Time Mother Hypothyroidi sm [id number] Not available 04/18/2022 04:43:08 Father Hypertensive disorder [id number].084 [id number] Not available 04/18/2022 04:43:08 Unspecified Relation Neoplasm of lung MIGRATION.007 [id number] Not available 04/18/2022 04:43:08 Unspecified Relation Heart disease MIGRATION.292 [id number] Not available 04/18/2022 04:43:08 Unspecified Relation Kidney disease MIGRATION.209 [id number] Not available 04/18/2022 04:43:08 Unspecified Relation Diabetes mellitus MIGRATION.398 [id number] Not available 04/18/2022 04:43:08 Medical History Condition Response BRONCHITIS Y HEADACHES/MIGRAINES Y OBESITY Y ANXIETY DISORDER Y BOWEL PROBLEMS Y HEARTBURN / REFLUX Y Gynecological History Statement/Question Response Abnormal Pap Y Date of Last Pap Date of Last Mammogram Date of Last Colonoscopy 07/04/2016 Obstetrics History GPAL:G 2 P 0 0 0 2 Type Value Living 2 Total 2 Immunizations Vaccine Type Date Status Note Provider Nam e and Address Organization Details Recorded Time tetanus toxoid, unspecified formulation 6 completed Not Available [facility] 04[facility]18/20[facility] 05:02:32 Past Encounters Encounter ID Performer Location Encounter Start Date Encounter Closed Date Diagnosis/Indication Diagnosis SNOMED-CT Code Diagnosis ICD10 Code Diagnosis Note [id number] [facility] [place] [address] [place] [address] 09/07/2020 00:00:00 09/17/2020 08:16:41 [id number] [facility] [place] [address] [place] [address] 05/24/2021 00:00:00 06/16/2021 19:09:10 [id number] [facility] [place] [address] [place] [address] 07/21/2021 00:00:00 08/17/2021 20:16:37 [id number] [facility] [place] [address] [place] [address] 01/26/2022 00:00:00 02/15/2022 22:15:24 [id number] ERIK Castillo [facility] [place] [address] [place] [address] 07/27/2022 14:04:24 07/27/2022 14:45:30 Adult health examination 568436004 Z00.01 annual wellness completed Generalize d anxiety disorder 81305386 F41.1 stable on lexapro 20mg daily and buspar 5mg bid-tid Acid reflux 290868395 K2 1.9 stable on omeprazole 40mg daily. Body mass index 40+ - severely obese [id number] Z68.41 RX for phentermin e course. [id number] ERIK Castillo [facility] [place] [address] [place] [address] 09/21/2022 14:14:25 09/21/2022 14:38:33 Generalized anxiety disorder 01952846 F41.1 stable on lexapro 20mg daily and buspar 5mg bid-tid Acid reflux 782088380 K2 1.9 stable on omeprazole 40mg daily. Body mass index 40+ - severely obese 970493469 Z68.41 pt can start phentermin e when she's ready to trial. BP is stable. she will monitor at work also. Health Concerns Section Related Observation LastModified by Organization Detai ls LastModified Time None Recorded Concern Status LastModified by Organization Details LastModified Time None Recorded Advance Directives Directive None Recorded Payers Encounter Date Sequence Insurance Name Policy Number Policy Alvarado Covered Member ID Alvarado Member ID Guarantor Name 07/27/2022 1 [facility] ON OR AFTER 02/19/2020 - DUAL ELIGIBLE (MEDICARE REPLACEMENT/ ADVANTAGE - HMO) Emily A Pool [id number] Emily Ann [employer] 09/21/2022 1 [facility] ON OR AFTER 02/19/2020 - DUAL ELIGIBLE (MEDICARE REPLACEMENT/ ADVANTAGE - HMO) Emily A Pool [id number] Emily Alla [employer] Notes Date Note Type Note Provider Name and Address Organization Details Recorded Time 2 text/html Anxiety/DepressionReporte d bypatient.Quality:Doesnt matter time of day. Severity:denies suicidal ideations; able to maintain relationships;interferenc e with household activities Duration:symptoms lasting over 2 weeks Onset/Timing:still present Context:major life stressors(life in general) Modifying Factors:medications as directed Associated Symptoms:denies homicidal ideations; no significant weight gain; no significant weight loss; no visual/auditory hallucinations; no delusions; no shortness of breath; mood good; no anxiety; no crying spells; no panic; no isolation; sleeping well; appetite good; energy good; no apathy; maintaining functionality Not Available [facility] [employer] 06/16/2021 19:09:10 2 text/html Anxiety/DepressionReporte d bypatient.Quality:symptom s improved Severity:denies suicidal ideations; able to maintain relationships; does not interfere with activities of daily living Context:major life stressors;tobacco use Modifying Factors:herbal medications (marijuana) Associated Symptoms:denies homicidal ideations; no significant weight gain; no significant weight loss; no visual/auditory hallucinations; no delusions; no shortness of breath; mood good; no anxiety; no crying spells; no panic; no isolation; sleeping well; appetite good; energy good; no apathy; maintaining functionalityGeneric HPI TemplateReported bypatient.Notes:Pt would also like to discuss labs Not Available [employer] 08/17/2021 20:16:37 2 text/html Anxiety/DepressionReporte d bypatient.Quality:symptom s worse in the evening Severity:denies suicidal ideations; able to maintain relationships; does not interfere with activities of daily living Duration:symptoms lasting over 2 weeks Onset/Timing:still present Context:no major life stressors Modifying Factors:medications as directed Associated Symptoms:denies homicidal ideations; no significant weight gain; no significant weight loss; no visual/auditory hallucinations; no delusions; no shortness of breath; mood good; no anxiety; no crying spells; no panic; no isolation; sleeping well; appetite good; energy good; no apathy; maintaining functionality Not Available [employer] 02/15/2022 22:15:24 3 text/html Anxiety/DepressionReporte d bypatient.Severity:denies suicidal ideations; able to maintain relationships; does not interfere with activities of daily living Duration:symptoms lasting over 2 weeks Context:no major life stressors Associated Symptoms:denies homicidal ideations; no significant weight gain; no significant weight loss; no visual/auditory hallucinations; no delusions; no shortness of breathNotes:stable on medsReflux/GERDReported bypatient.Quality:burning Severity:improving Duration:present 1-4 years Alleviating Factors:medication Aggravating Factors:worsened by food Associated Symptoms:no frequent coughing; no feeling of fullness/mass in throat; no vomiting;heartburn here for wellness ERIK Castillo [address] [address], [place], [address], [employer] 08/15/2022 23:09:36 3 text/html Generic HPI TemplateReported bypatient.Notes:Pt is here to f//u on phentermine but she didnt start taking it. She wants to talk to you about it more. ERIK Castillo [address] [address], [place], [address], [place] [facility] 10/18/2022 23:40:45 OBGyn Episode No OBEpisode recorded.
--- OUTSIDE RECORDS SUMMARY | 2024-06-08 17:57 | XMS_ITS | Data Portability ---
Author Organization [facility] Address [address] [place] [address] Care Team Providers Care Casing Tier Name Role Phone JANINE GREENE Primary Care Provider Unavailab le Assessment No assessment recorded. Plan of Treatment Reminders Order Date Submit Date Provider Last Modified By Organization Details Last Modified Time Details Appointments None recorded. Lab CMP, serum or plasma 2023 024 [place] [facility] [address], [place], [address], 4 14:37:20 CBC w/ auto diff 2023 024 [place] [facility], 2022 Jaycee [address]quin[address], [place], [address], 4 14:37:22 vitamin B12 + folate, serum or blood 2023 024 [place] [facility], 2022 Jaycee Mar[address]quin, [address], [place], [address], 4 14:37:20 lipid panel, serum 2023 024 [place] [facility], 2022 Jaycee Marroquin, [address], [place], [address], 4 14:37:19 insulin, serum 2023 024 [place] [facility], 2022 Jaycee Marroquin[address], [place], [address], 4 14:37:22 TSH + free T4, serum 2023 G[facility], 20[address], [place], [address], 14:37:19 HbA1c (hemoglobin A1c), blood 2023 GABRIELA [facility], [address], [place], [address], 14:37:21 Referral None recorded. Procedures None recorded. Surgeries None recorded. Imaging None recorded. Medication Orders prednisone 20 mg tablet 2023 [id number], [address], [place], [place], [id number], 12:57:18 tretinoin 0.025 % topical cream 2023 [facility] #[id number], [address], [place], [place], [id number], 10:05:26 omeprazole 40 mg capsule,del ayed release 2023 [facility] #[id number], [address], [place], [place], [id number], 12:57:25 Patient TargetsNo targets recorded. Patient Instructions Encounter Date Encounter Id Patient Instructions Last Modified By Organization Details Last Modified Time 06/14/2023 [id number] Quitting Tobacco : Care Instructions Not available 06/14/2023 10:06:34 A healthy lifestyle: care instructions Not available 06/14/2023 10:05:08 Reason for Referral None Reported. Results Created Date Observation Date Name Description Value Unit Range Abnormal Flag Note LastModifiedBy Organization Detail LastModifiedTime 06/18/19 24 06/19/2023 LIPID PANEL W/ CHOL/ HDL RATIO cholesterol, total 167 mg/dL 100-19 9 Not Available [facility] ([facility]) [address] [facility], [place], [address], 06/19/2023 14:37:19 06/18/19 24 06/19/2023 LIPID PANEL W/ CHOL/ HDL RATIO triglyceride s 140 mg/dL 0-149 Not Available [facility] ([facility]) [address] [facility], [place], [address], 06/19/2023 14:37:19 06/18/19 24 06/19/2023 LIPID PANEL W/ CHOL/ HDL RATIO HDL cholesterol 47 mg/dL >39 Not Available [facility] ([facility]) [address] [facility], [place], [address], 06/19/2023 14:37:19 06/18/19 24 06/19/2023 LIPID PANEL W/ CHOL/ HDL RATIO VLDL cholesterol suraj 25 mg/dL 5-40 Not Available [facility] ([facility]) [address] [facility], [place], [address], 06/19/2023 14:37:19 06/18/19 24 06/19/2023 LIPID PANEL W/ CHOL/ HDL RATIO LDL chol calc ([facility]) 95 mg/dL 0-99 Not Available [facility] ([facility]) [address] [facility], [place], [address], 06/19/2023 14:37:19 06/18/19 24 06/19/2023 LIPID PANEL W/ CHOL/ HDL RATIO T. chol/HDL ratio 3.6 ratio 0.0-4. 4 T. Chol/ HDL Ratio Men Women 1/2 Avg.R isk 3.4 3.3 Avg.R isk 5.0 4.4 2X Avg.R isk 9.6 7.1 3X Avg.R isk 23.4 11.0 Not Available [facility] ([facility]) [address] [place], [address], 06/19/2023 14:37:19 06/18/19 24 06/19/2023 TSH+F REE T4 TSH 1.580 uIU/m L 0.450- 4.500 Not Available [facility] ([facility]) [address] [place], [address], 06/19/2023 14:37:19 06/18/19 24 06/19/2023 TSH+F REE T4 T4,free(dire ct) 1.00 NG/dL 0.82-1 .77 Not Available [facility] ([facility]) [address] [place], [address], 06/19/2023 14:37:19 06/18/19 24 06/19/2023 COMP. METAB OLIC PANEL (14) glucose 111 mg/dL 70-99 above high normal Not Available [facility] ([facility]) [address] [place], [address], 06/19/2023 14:37:20 06/18/19 24 06/19/2023 COMP. METAB OLIC PANEL (14) BUN 8 mg/dL 6-24 Not Available [facility] ([facility]) [address] [place], [address], 06/19/2023 14:37:20 06/18/19 24 06/19/2023 COMP. METAB OLIC PANEL (14) creatinine 0.83 mg/dL 0.57-1 .00 Not Available [facility] ([facility]) [address] [place], [address], 06/19/2023 14:37:20 06/18/19 24 06/19/2023 COMP. METAB OLIC PANEL (14) eGFR 91 mL/mi n/1.7 3 >59 Not Available [facility] ([facility]) [address] [place], [address], 06/19/2023 14:37:20 06/18/19 24 06/19/2023 COMP. METAB OLIC PANEL (14) BUN/creatini ne ratio 10 9-23 Not Available [facility] ([facility]) [address], [place], [address], 06/19/2023 14:37:20 06/18/19 24 06/19/2023 COMP. METAB OLIC PANEL (14) sodium 141 mmol/ L 134-14 4 Not Available [facility] ([facility]) [address], [place], [address], 06/19/2023 14:37:20 06/18/19 24 06/19/2023 COMP. METAB OLIC PANEL (14) potassium 4.3 mmol/ L 3.5-5. 2 Not Available [facility] ([facility]) [address] [place], [address], 06/19/2023 14:37:20 06/18/19 24 06/19/2023 COMP. METAB OLIC PANEL (14) chloride 104 mmol/ L 96-106 Not Available [facility] ([facility]) [address], [place], [address], 06/19/2023 14:37:20 06/18/19 24 06/19/2023 COMP. METAB OLIC PANEL (14) carbon dioxide, total 25 mmol/ L 20-29 Not Available [facility] ([facility]) [address] [facility], [place], [address], 06/19/2023 14:37:20 06/18/19 24 06/19/2023 COMP. METAB OLIC PANEL (14) calcium 8.8 mg/dL 8.7-10 .2 Not Available [facility] ([facility]) [address] [facility] [place], [address], 06/19/2023 14:37:20 06/18/19 24 06/19/2023 COMP. METAB OLIC PANEL (14) protein, total 6.1 g/dL 6.0-8. 5 Not Available [facility] ([facility]) [address] [facility] [place], [address], 06/19/2023 14:37:20 06/18/19 24 06/19/2023 COMP. METAB OLIC PANEL (14) albumin 4.0 g/dL 3.9-4. 9 Not Available [facility] ([facility]) [address] [facility], [place], [address], 06/19/2023 14:37:20 06/18/19 24 06/19/2023 COMP. METAB OLIC PANEL (14) globulin, total 2.1 g/dL 1.5-4. 5 Not Available [facility] ([facility]) [address] [facility], [place], [address], 06/19/2023 14:37:20 06/18/19 24 06/19/2023 COMP. METAB OLIC PANEL (14) A/G ratio 1.9 1.2-2. 2 Not Available [facility] ([facility]) [address] [facility], [place], [address], 06/19/2023 14:37:20 06/18/19 24 06/19/2023 COMP. METAB OLIC PANEL (14) bilirubin, total 0.4 mg/dL 0.0-1. 2 Not Available [facility] ([facility]) [address] [facility], [place], [address], 06/19/2023 14:37:20 06/18/19 24 06/19/2023 COMP. METAB OLIC PANEL (14) alkaline phosphatase 86 IU/L 44-121 Not Available [facility] ([facility]) [address] [facility], [place], [address], 06/19/2023 14:37:20 06/18/19 24 06/19/2023 COMP. METAB OLIC PANEL (14) AST (SGOT) 14 IU/L 0-40 Not Available [facility] ([facility]) [address] [facility], [place], [address], 06/19/2023 14:37:20 06/18/19 24 06/19/2023 COMP. METAB OLIC PANEL (14) ALT (SGPT) 11 IU/L 0-32 Not Available [facility] ([facility]) [address] [facility], [place], [address], 06/19/2023 14:37:20 06/18/19 24 06/19/2023 VITAM IN B12 AND FOLAT E vitamin B12 331 pg/mL 232-12 45 Not Available [facility] ([facility]) [address] [facility], [place], [address], 06/19/2023 14:37:20 06/18/19 24 06/19/2023 VITAM IN B12 AND FOLAT E folate (folic acid), serum 13.3 NG/mL >3.0 A serum folat e hector ntrat ion of less than 3.1 ng/mL is consi dered to repre sent clini suraj defic iency . Not Available [facility] ([facility]) [address] [facility], [place], [address], 06/19/2023 14:37:20 06/18/19 24 06/19/2023 HEMOG LOBIN A1C hemoglobin A1C 5.5 % 4.8-5. 6 Predi abete s: 5.7 - 6.4 Diabe kaur: >6.4 Glyce abby contr ol for adult s with diabe kaur: <7.0 Not Available [facility] ([facility]) [address] [place], [address], 06/19/2023 14:37:21 06/18/19 24 06/19/2023 INSUL IN insulin 26.7 uIU/m L 2.6-24 .9 above high normal Not Available [facility] ([facility]) [address] [facility], [place], [address], 06/19/2023 14:37:22 06/18/19 24 06/19/2023 CBC WITH DIFFE RENTI AL/PL ATELE T WBC 8.8 x10e3 /uL 3.4-10 .8 Not Available [facility] ([facility]) [address] [facility], [place], [address], 06/19/2023 14:37:22 06/18/19 24 06/19/2023 CBC WITH DIFFE RENTI AL/PL ATELE T RBC 4.23 x10e6 /uL 3.77-5 .28 Not Available [facility] ([facility]) [address] [facility], [place], [address], 06/19/2023 14:37:22 06/18/19 24 06/19/2023 CBC WITH DIFFE RENTI AL/PL ATELE T hemoglobin 13.1 g/dL 11.1-1 5.9 Not Available [facility] ([facility]) [address] [facility], [place], [address], 06/19/2023 14:37:22 06/18/19 24 06/19/2023 CBC WITH DIFFE RENTI AL/PL ATELE T hematocrit 39.3 % 34.0-4 6.6 Not Available [facility] ([facility]) [address] [facility], [place], [address], 06/19/2023 14:37:22 06/18/19 24 06/19/2023 CBC WITH DIFFE RENTI AL/PL ATELE T MCV 93 fL 79-97 Not Available [facility] ([facility]) [address] [place], [address], 06/19/2023 14:37:22 06/18/19 24 06/19/2023 CBC WITH DIFFE RENTI AL/PL ATELE T MCH 31.0 pg 26.6-3 3.0 Not Available [facility] ([facility]) [address] [place], [address], 06/19/2023 14:37:22 06/18/19 24 06/19/2023 CBC WITH DIFFE RENTI AL/PL ATELE T MCHC 33.3 g/dL 31.5-3 5.7 Not Available [facility] ([facility]) [address] [facility], [place], [address], 06/19/2023 14:37:22 06/18/19 24 06/19/2023 CBC WITH DIFFE RENTI AL/PL ATELE T RDW 12.9 % 11.7-1 5.4 Not Available [facility] ([facility]) [address] [facility], [place], [address], 06/19/2023 14:37:22 06/18/19 24 06/19/2023 CBC WITH DIFFE RENTI AL/PL ATELE T platelets 263 x10e3 /uL 150-45 0 Not Available [facility] ([facility]) [address] [facility], [place], [address], 06/19/2023 14:37:22 06/18/19 24 06/19/2023 CBC WITH DIFFE RENTI AL/PL ATELE T neutrophils 70 % notest ab. Not Available [facility] ([facility]) [address] [facility], [place], [address], 06/19/2023 14:37:22 06/18/19 24 06/19/2023 CBC WITH DIFFE RENTI AL/PL ATELE T lymphs 18 % notest ab. Not Available [facility] ([facility]) [address] [facility], [place], [address], 06/19/2023 14:37:22 06/18/19 24 06/19/2023 CBC WITH DIFFE RENTI AL/PL ATELE T monocytes 8 % notest ab. Not Available [facility] ([facility]) [address] [place], [address], 06/19/2023 14:37:22 06/18/19 24 06/19/2023 CBC WITH DIFFE RENTI AL/PL ATELE T eos 2 % notest ab. Not Available [facility] ([facility]) [address] [place], [address], 06/19/2023 14:37:22 06/18/19 24 06/19/2023 CBC WITH DIFFE RENTI AL/PL ATELE T basos 1 % notest ab. Not Available [facility] ([facility]) [address] [facility], [place], [address], 06/19/2023 14:37:22 06/18/19 24 06/19/2023 CBC WITH DIFFE RENTI AL/PL ATELE T neutrophils (absolute) 6.2 x10e3 /uL 1.4-7. 0 Not Available [facility] ([facility]) [address] [facility], [place], [address], 06/19/2023 14:37:22 06/18/19 24 06/19/2023 CBC WITH DIFFE RENTI AL/PL ATELE T lymphs (absolute) 1.6 x10e3 /uL 0.7-3. 1 Not Available [facility] ([facility]) [address] [facility], [place], [address], 06/19/2023 14:37:22 06/18/19 24 06/19/2023 CBC WITH DIFFE RENTI AL/PL ATELE T monocytes(ab solute) 0.7 x10e3 /uL 0.1-0. 9 Not Available [facility] ([facility]) [address] [facility], [place], [address], 06/19/2023 14:37:22 06/18/19 24 06/19/2023 CBC WITH DIFFE RENTI AL/PL ATELE T eos (absolute) 0.2 x10e3 /uL 0.0-0. 4 Not Available [facility] ([facility]) [address] [facility], [place], [address], 06/19/2023 14:37:22 06/18/19 24 06/19/2023 CBC WITH DIFFE RENTI AL/PL ATELE T baso (absolute) 0.1 x10e3 /uL 0.0-0. 2 Not Available [facility] ([facility]) [address] [facility], [place], [address], 06/19/2023 14:37:22 06/18/19 24 06/19/2023 CBC WITH DIFFE RENTI AL/PL ATELE T immature granulocytes 1 % notest ab. Not Available [facility] ([facility]) [address] [facility], [place], [address], 06/19/2023 14:37:22 06/18/19 24 06/19/2023 CBC WITH DIFFE RENTI AL/PL ATELE T immature grans (abs) 0.0 x10e3 /uL 0.0-0. 1 Not Available [facility] ([facility]) [address] [facility], [place], [address], 06/19/2023 14:37:22 12/20/19 24 12/19/2023 MAMMO , scree hay, digit al, bilat eral No observ ation record ed. [address] [facility], [place], [address], 12/20/2023 13:28:47 01/20/20 24 01/19/2024 CT, abdom en + pelvi s, w/ contr ast No observ ation record ed. [address], [address], 01/20/2024 10:01:33 Result Notes None recorded. Problems Name Problem SNOMED Code Status Onset Date Resolution Date Notes Provider Name and Address Organization Details Recorded Time Smoker 18809236 Active 2023 ERIK Castillo Attn: Veronica yañez,[address] [facility] [address], [place], [address], [facility] 10:05:47 Acne 54204029 Active 2023 ERIK Castillo Attn: Veronica yañez,[address] [facility] [address], [place], [address], [place] [facility] 4 10:05:48 Hoarse 21426000 Active 2023 ERIK Castillo Attn: Accountin g,[address] [place], [address], [place] [facility] 4 10:05:49 Obesity 021926836 Active 2023 ERIK Castillo Attn: Accountin g,[address] [place], [place], [address] [place] [address] 2, [place] [facility] 4 10:05:51 Body mass index 40+ - severely obese 149598575 Active 2023 ERIK Castillo Attn: Accountin g,[address] [place], [place], [address] [place] [address] 2, [place] [facility] 4 10:05:53 Long-term drug therapy Active 2023 ERIK Castillo Attn: Accountin g,[address] [place], [address], [place] [facility] 4 10:05:54 Diabetes mellitus screening Active 2023 ERIK Castillo Attn: Kimin g,[address] [place], [address], [place] [facility] 4 10:05:56 Cholesterol screening Active 2023 ERIK Castillo Attn: Accountin g,[address] [place], [address], [place] [facility] 4 10:05:57 Gastroesophage al reflux disease without esophagitis 507750873 Active 2023 ERIK Castillo Attn: Accountin g,[address] [place], [address], [place] [facility] 4 10:05:59 Mixed anxiety and depressive disorder 966786390 Active 2023 ERIK Castillo Attn: Accountin g,[address] [place], [address], [facility] 4 10:06:00 Hematoma of back Active 2023 ERIK Castillo Attn: Veronica yañez,[address], [place], [address], [facility] 4 16:25:00 Problem Notes None recorded. Procedures Surgical History Date Name Laterality Status Provider Name and Address Organization Details Recorded Time section completed Catherine Hogue MA [facility] 06/14/2023 10:11:04 Tonsillectomy completed Catherine Hogue MA [facility] 06/14/2023 10:11:10 Imaging Results Imaging Date Name Status LastModified by Organiz ation Details LastModified Time 12/19/2023 MAMMO, screening, digital, bilateral completed [address] [place] [address], [address], 12/20/2023 13:28:47 01/19/2024 CT, abdomen + pelvis, w/ contrast completed [address], [address], 01/20/2024 10:01:33 Procedure Notes None recorded. Medical Equipment None Reported. Allergies No known drug allergies Medications Name Sig Start Date Stop Date Status Note LastModified by Organization Details LastModified Time buspirone 5 mg tablet 1 tab p.o. 2-3 times daily active Not Available Not Available No t Available alprazolam 1 mg tablet 06/13 completed Not Available Not Available Not Available hydrocodon e 5 mg-acetami nophen 325 mg tablet TAKE 1 TABLET BY MOUTH EVERY 8 HOURS NEEDED FOR PAIN active Not Available Not Available No t Available tretinoin 0.025 % topical cream APPLY TO THE AFFECTED AREA(S) BY TOPICAL ROUTE ONCE DAILY AT BEDTIME active Not Available Not Available No t Available meloxicam 15 mg tablet 06/13 completed Not Available Not Available Not Available prednisone 20 mg tablet 01/04 completed Not Available Not Available Not Available omeprazole 40 mg capsule,de layed release Take 1 capsule every day by oral route. 01/04 completed Not Available Not Available Not Available alprazolam 0.25 mg tablet TAKE 1 TABLET BY MOUTH TWICE DAILY NEEDED active Not Available Not Available No t Available cephalexin 500 mg capsule 06/13 completed Not Available Not Available Not Available pantoprazo le 40 mg tablet,del ayed release 1 tab p.o. daily active Not Available Not Available No t Available methylpred nisolone 4 mg tablets in a dose pack 01/04 completed Not Available Not Available Not Available naproxen 500 mg tablet active as needed Not Available Not Available Not Available escitalopr am 20 mg tablet TAKE 1 TABLET BY MOUTH DAILY 2024 active Not Available Not Available Not Avai lable pregabalin 75 mg capsule 06/13 completed Not Available Not Available Not Available Vitals Date Recorded Body height Body mass index (BMI) Body weight Respiratory rate Oxygen saturation Oxygen saturation in Arterial blood by Pulse oximetry Heart rate Systolic blood pressure Diastolic blood pressure Provider Name and Address Organization Details Last Updated DateTime 4 170.18 cm 42.3 kg/m2 968358. 94 g 20 /min 98 % 98 % 78 /min 126 mm[Hg] 82 mm[Hg] Catherine Hogue MA [facility] 09:42:04 Date Recorded Systolic blood pressure Diastolic blood pressure Provider Name and Address Organization Details Last Updated DateTime 06/14/2023 124 mm[Hg] 80 mm[Hg] ERIK Castillo Attn: Accounting,[address] [place], [address], [facility] 06/14/2023 09:58:57 Date Recorded Body height Body mass index (BMI) Body weight Respiratory rate Oxygen saturation Oxygen saturation in Arterial blood by Pulse oximetry Heart rate Systolic blood pressure Diastolic blood pressure Provider Name and Address Organization Details Last Updated DateTime 4 170.18 cm 41.8 kg/m2 733393. 16 g 20 /min 97 % 97 % 69 /min 122 mm[Hg] 82 mm[Hg] Catherine Hogue MA [facility] 09:51:45 Date Recorded Systolic blood pressure Diastolic blood pressure Provider Name and Address Organization Details Last Updated DateTime 01/23/2024 110 mm[Hg] 80 mm[Hg] ERIK Castillo Attn: Accounting,[address] [facility] [address], [place], [address], [place] [facility] 01/23/2024 10:13:08 Social History Question Answer Notes LastModified by Organizat ion Details LastModified Time Tobacco Smoking Status Current Every Day Smoker Catherine Hogue MA [facility], [facility] 06/14/2023 09:38:33 What Is Your Level Of Alcohol Consumption? Moderate 4-5 Twisted Tea Information not available 06/14/2023 Are You Blind Or Do You Have Difficulty Seeing? No Glasses Information not available 06/14/2023 What Is Your Level Of Caffeine Consumption? Heavy Soda, Tea, Coffee Information not available 06/14/2023 In The 14 Days Before Symptom Onset, Have You Had Close Contact With A Laboratory-confir med COVID-19 While That Case Was Ill? No Information not available 06/14/2023 In The 14 Days Before Symptom Onset, Have You Had Close Contact With A Person Who Is Under Investigation For COVID-19 While That Person Was Ill? No Information not available 06/14/2023 Have You Been To An Area Known To Be High Risk For COVID-19? No Information not available 06/14/2023 Are You Deaf Or Do You Have Serious Difficulty Hearing? No Information not available 06/14/2023 What Type Of Diet Are You Following? REGULAR Information not available 06/14/2023 Are There Any Guns Present In Your Home? No Information not available 06/14/2023 What Was The Date Of Your Most Recent Tobacco Screening? 01/23/2024 Information not available 01/23/2024 What Is Your Current Pack Years? 20-29packyea rs Information not available 06/14/2023 Do You Use Your Seat Belt Or Car Seat Routinely? Yes Information not available 06/14/2023 Do You Have Smoke And Carbon Monoxide Detectors In Your Home? Yes Information not available 06/14/2023 How Much Tobacco Do You Smoke? No 5-6 A Day Information not available 01/23/2024 Do You Use Any Illicit Or Recreational Drugs? Yes Information not available 06/14/2023 Do You Use Sunscreen Routinely? No Information not available 06/14/2023 Has Tobacco Cessation Counseling Been Provided? Yes Information not available 06/14/2023 On What Date Was Tobacco Cessation Counseling Provided? 01/23/2024 Information not available 01/23/2024 How Many Years Have You Smoked Tobacco? 25 Information not available 06/14/2023 Do You Or Have You Ever Used Any Other Forms Of Tobacco Or Nicotine? No Information not available 06/14/2023 Sex: Female Functional Status Question Answer Note LastModified by Organization D etails LastModified Time Are you able to care for yourself? Yes Information n ot available 06/14/2023 What is your exercise level? None walk Information not available 06/14/2023 Mental Status None recorded. Family History Relationship Description Onset Age of this Age Resolved Age Notes LastModified by Organization Details LastModified Time Father Hypertensive disorder [email or web address] Not available 2023 10:11:23 Medical History Condition Response Coronary Artery Disease N Other N High Blood Pressure N Atrial Fibrillation N Kidney or Bladder Problems N Thyroid Problems N GI Problems N Depression N COPD N Blood Clots N Skin Problems N Anemia N Heart Attack ([place]) N Anxiety Disorder Y Diabetes N Muscle, Joint, or Bone Problems N Seizures/Epilepsy N Acid Reflux (GERD) Y Cancer N Stroke N Asthma N Allergies Y High Cholesterol N Hepatitis N Liver Disease N Headaches Y Heart Failure N Osteoporosis N Gynecological History Statement/Question Response Flow Moderate Date of LMP 01/06/2024 Frequency of Cycle (Q days) Menses Monthly Y Current Control Method None LMP Approximate Obstetrics History GPAL:G 2 P 2 0 0 2 Type Value Full Term 2 Induced 0 Spontaneous 0 Premature 0 Living 2 Total 2 Immunizations Vaccine Type Date Status Note Provider Nam e and Address Organization Details Recorded Time Hep A, adult 06/07/2023 completed Catherine Hogue [place], [place] [facility] 12/17/2023 10:32:05 Hep A, adult 08/08/2022 completed Catherine Hogue [place], [place] [facility] 12/17/2023 10:32:05 Past Encounters Encounter ID Performer Location Encounter Start Date Encounter Closed Date Diagnosis/Indication Diagnosis SNOMED-CT Code Diagnosis ICD10 Code Diagnosis Note [id number] ERIK Castillo [facility] [employer] [address] [place] [address] 06/14/2023 09:27:04 06/14/2023 11:04:15 Mixed anxiety and depressive disorder 746841452 F41.8 stable on buspar and lexapro therapy. infrequent alprazolam 0.25mg use Gastroesop hageal reflux disease without esophagitis 428704243 K21.9 Start omeprazole 40mg daily. assess if hoarseness improves after PPI therapy is starting daily. Cholesterol screening 27 0667888 Z13.220 fasting lipids due Diabetes m ellitus screening 233825816 Z13.1 a1c screening due Long-term drug therapy 251984603 Z79.899 cmp, cbc and b12, folate labs are due Body mass index 40+ - severely obese 057079112 Z68.41 fasting insulin and thyroid panel ordered Obesity 985172068 E66.9 discussed healthy diet, exercise, controllin g carbohydra kaur and added sugars in the diet Hoarse 57622716 R49.0 In line with recent sinus and allergy drainage, etc. trial of prednisone 40mg daily x 5 days. if this continues we can refer to ENT as next step. Hoarseness may also be unmanaged reflux symptoms. Acne 98638714 L70.9 Rx trial of tretinoin 0.025% cream qhs Smoker [id number] F17.200 smoking cessation discussed [id number] ERIK Castillo [facility] [employer] [address] [place] [address] 01/23/2024 09:44:49 01/23/2024 10:14:05 Contusion of lower back [id number] S30.0XXD Supportive care at this time using ice and heat along with anti-infla mmatory and Tylenol alternatin g Contusion of left buttock [id number] S30.0XXD Treatment as above Hematoma of back [id number] scan of the abdomen and pelvis was also done due to the left hip hematoma and confirms a 13 x 7.7 x 6.2 cm hematoma in the subcutaneo us tissues of the left lower back with a small blush of contrast suggesting some active extravasat ion bleeding. Health Concerns Section Related Observation LastModified by Organization Detai ls LastModified Time None Recorded Concern Status LastModified by Organization Details LastModified Time None Recorded Advance Directives Directive None Recorded Payers Encounter Date Sequence Insurance Name Policy Number Policy Alvarado Covered Member ID Alvarado Member ID Guarantor Name 06/14/2023 1 [facility] ON OR AFTER 08/18/20 (MEDICAID REPLACEMENT - O) [facility] [id number] [facility] 01/23/2024 1 [facility] ON OR AFTER 08/18/20 (MEDICAID REPLACEMENT - HMO) Emily Pool [id number] [facility] Notes Date Note Type Note Provider Name and Address Organization Details Recorded Time 06/14/2023 text/html Anxiety/Depressi onRe ported bypatient.Notes:pt is taking buspar 5mg bid and lexapro 20mg daily and PRN alprazolam. stable. no c/o.Reflux/GERDRepor diaz bypatient.Notes:pt is not taking daily antacid. she does c/o raspy , hoarse voice. ERIK Castillo Attn: [employer] [place], [address], [place] [facility] 06/20/2023 00:00:45 01/23/2024 text/html Patient presents for emergency room follow-up after she slipped on concrete steps and fell down on her back side causing significant bruising and swelling and discomfort to her side. Per emergency room records reviewed from the hospital: Imaging showed on CT scan:-xray of the left hip in the ER ordered because of a fall with a large bruise shows no acute finding in the left hip. There is however a partially visualized left lateral soft tissue contusion measuring about [address] scan of the abdomen and pelvis was also done due to the left hip hematoma and confirms a 13 x 7.7 x 6.2 cm hematoma in the subcutaneous tissues of the left lower back with a small blush of contrast suggesting some active extravasation bleeding she also has cholelithiasis that was noted. There also is a 3.2 cm left adnexal cyst. Today the patient is having some minimal improvement in her pain and her mobility is a little bit better. ERIK Castillo Attn: [employer] [facility], [place], [address], [facility] 02/13/2024 16:25:16 OBGyn Episode No OBEpisode recorded.
== END 2024-06-08 16:39 | disposition home or self-care (01) ==
LOC: ANHLAB 16:39
PROVIDERS: PCP Physician Assistant; Visit Provider Obstetrics & Gynecology
DX: Z01.818 Encounter for other preprocedural examination (principal); R10.2 Pelvic and perineal pain
CPT/HCPCS: 36415; 85025; 86850; 86900; 86901

== ENCOUNTER 2024-06-12 01:07 | Day surgery (SDC) | payer OTHER, SELFPAY ==
--- NOTE | 2024-06-08 11:28 | PC.NURSE ---
Report to the Outpatient Waiting Room, entrance under the green pavilion located off [facility], at time _0730_ on date _[id number]_. Planned Procedure Time: _0930_.? Time changes happen often and if your time is changed the preop area will call you the afternoon before. - You and your visitor will be asked to self-screen and do not enter if you have any COVID symptoms. Please call surgeon if you need to reschedule. - A mask is optional within the hospital at this time. Patients may have clear liquids (water, carbonated beverages, clear teas, apple juice) until 3 hours prior to surgery with a maximum of 20 ounces. - No food from midnight until time of surgery and no smoking, or chewing tobacco (or any form of nicotine). No chewing gum, candy or mints. Take only the following medications with a SIP of water on the morning of surgery: ___Buspirone and Escitalopram____ DO NOT STOP ANY OF YOUR OTHER PRESCRIPTION MEDICATIONS PRIOR TO SURGERY EXCEPT THE FOLLOWING Hold all vitamins and supplements for 3 days per anesthesiologist. Medications to discontinue per physician Date to take last dose Please no make-up, nail citizen of [place], hairspray, perfume, deodorant, or body powder the day of surgery.? No jewelry (including any body piercings) or valuables the day of surgery, leave them at home.? Please take a shower or bath the night before, or the morning of, surgery with an antibacterial soap.? Wear comfortable, loose fitting clothing.? - Jewelry must be removed prior to entering the operating room.? Rings and piercings that are not removed may be cut off. - The hospital will not accept responsibility for valuables.? - Please leave all valuables, including medications, at home the day of surgery. If you are going home after surgery, a licensed milk pickup driver must drive you home.? - NO public transportation without another adult if you receive anesthesia. - We recommend that an adult stay with you for 24 hours following discharge. - We also recommend that you do not drive, make important decision, drink alcoholic beverages, or take any drugs that were not prescribed by your health care provider for at least 24 hours after your discharge time. Follow any additional instructions given to you from your surgeon. Telephone instructions given to __Emily__and asked if any additional questions and then verbalized understanding. Patient advised to call surgeon office or pre surgery nurse liaison [phone] if any additional questions.
[2024-06-08 11:32] VITALS: BMI 41.5
--- NOTE | 2024-06-09 12:59 | PM.IMHP ---
H&P: HPI History of Present Illness Date/Time: 06/09/24 12:59 Chief Complaint: Pelvic pain/enlarged uterus/uterine prolapse/left ovarian cyst Narrative: 43-year-old female admitted for robotic total vaginal hysterectomy bilateral salpingectomy and left oophorectomy secondary to pelvic pain enlarged uterus uterine prolapse and irregular bleeding. Risks and benefits of this procedure reviewed including not exclusive of , aspiration pneumonia, bleeding, transfusion, perforation injury to bowel, bladder, ureters, or other internal organs with need for open laparotomy. She received the [employer] handout entitled hysterectomy as well as the [facility] handout. She had all questions answered. She asked to proceed Review of Systems Review of Systems: All systems reviewed & are unremarkable except as noted in HPI and below PMFSH Past Medical History Medical History Morbid obesity Social History Social History Years smoked: 25 Smoking status: Current every day smoker Tobacco type: cigarettes Alcohol intake: current Drinks per week: 2 Alcohol use details: RARE Substance use: current Substance use type: marijuana Other substance usage details: Daily Living arrangements: with family Additional living arrangements comments: CHILDREN Spiritual care concerns: No Meds Home Medications and Allergies Home Medications ?Medication ?Instructions ?Recorded ?Confirmed ?Type buspirone 5 mg tablet 5 mg PO DAILY 05/14/22 06/08/24 History escitalopram oxalate 20 mg tablet 20 mg PO DAILY 05/14/22 06/08/24 History pantoprazole 40 mg tablet,delayed 40 mg PO DAILY 06/08/24 06/08/24 History release Allergies Allergy/AdvReac Type Severity Reaction Status Date / Time No Known Allergies Allergy Verified 06/08/24 11:30 Exam Const: General: cooperative, healthy appearing, comfortable and obese Orientation/consciousness: oriented to person, oriented to place and oriented to time HENMT: Head: normal to inspection Resp: Effort & Inspection: normal respiratory effort Cardio: Rate: regular rate Rhythm: regular rhythm Heart sounds: S1 normal heart sound present and S2 normal heart sound present GI: Inspection: normal to inspection Auscultation: normal bowel sounds : External Female Exam: normal external appearance Speculum Exam - Vagina: normal appearance of the vagina Speculum Exam - Cervix: normal appearance of the cervix Bimanual exam- vagina & uterus: enlarged, Uterine tenderness and other (Second-degree prolapse present) Bimanual Exam- Adnexa, other: tender on the left Assessment and Plan Assessment and plan (1) Enlarged uterus: Code(s): N85.2 - Hypertrophy of uterus Status: Acute (2) Pelvic pain: Code(s): R10.2 - Pelvic and perineal pain Status: Acute (3) Left ovarian cyst: Code(s): N83.202 - Unspecified ovarian cyst, left side Status: Acute (4) Menorrhagia: Code(s): N92.0 - Excessive and frequent menstruation with regular cycle Status: Acute Plan Will proceed with robotic total vaginal hysterectomy bilateral salpingectomy and left oophorectomy
[2024-06-12] VITALS (10 sets, daily range): BP systolic 119–145; BP diastolic 69–94; PULSE 55–91; RESP 16–28; TEMP 36.1–36.8; O2SAT 93–100; BMI 41.3
--- OUTSIDE RECORDS SUMMARY | 2024-06-12 01:13 | XMS_ITS | Data Portability ---
Author Organization [facility] Address [address] [place] [address] Care Team Providers Care Band Instrument Maker Name Role Phone JANINE GREENE Primary Care Provider Unavailab le Assessment No assessment recorded. Plan of Treatment Reminders Order Date Submit Date Provider Last Modified By Organization Details Last Modified Time Details Appointments None recorded. Lab CMP, serum or plasma 2023 024 [place] [facility], [address], [place], [address], 4 14:37:20 CBC w/ auto diff 2023 024 [place] [facility], [address], [place], [address], 4 14:37:22 vitamin B12 + folate, serum or blood 2023 024 [place] [facility], [address], [place], [address], 4 14:37:20 lipid panel, serum 2023 024 [place] [facility], [address], [place], [address], 4 14:37:19 insulin, serum 2023 024 [place] [facility], [address], [place], [address], 4 14:37:22 TSH + free T4, serum 2023 [facility], [address], [place], [address], 14:37:19 HbA1c (hemoglobin A1c), blood 2023 [facility], [address], [place], [address], 14:37:21 Referral None recorded. Procedures None recorded. Surgeries None recorded. Imaging None recorded. Medication Orders prednisone 20 mg tablet 2023 [facility][id number], [address], [place], [place], [id number], 12:57:18 tretinoin 0.025 % topical cream 2023 [facility] #[id number], [address], [place], [place], [id number], 10:05:26 omeprazole 40 mg capsule,del ayed release 2023 [facility] #[id number], [address], [place], [place], [id number], 12:57:25 Patient TargetsNo targets recorded. Patient Instructions Encounter Date Encounter Id Patient Instructions Last Modified By Organization Details Last Modified Time 06/14/2023 [id number] Quitting Tobacco : Care Instructions Not available 06/14/2023 10:06:34 A healthy lifestyle: care instructions Not available 06/14/2023 10:05:08 Reason for Referral None Reported. Results Created Date Observation Date Name Description Value Unit Range Abnormal Flag Note LastModifiedBy Organization Detail LastModifiedTime 06/18/19 24 06/19/2023 LIPID PANEL W/ CHOL/ HDL RATIO cholesterol, total 167 mg/dL 100-19 9 Not Available [facility] ([facility]) [address] [facility], [place], [address], 06/19/2023 14:37:19 06/18/19 24 06/19/2023 LIPID PANEL W/ CHOL/ HDL RATIO triglyceride s 140 mg/dL 0-149 Not Available [facility] ([facility]) [address] [facility], [place], [address], 06/19/2023 14:37:19 06/18/19 24 06/19/2023 LIPID PANEL W/ CHOL/ HDL RATIO HDL cholesterol 47 mg/dL >39 Not Available [facility] ([facility]) [address] [facility], [place], [address], 06/19/2023 14:37:19 06/18/19 24 06/19/2023 LIPID PANEL W/ CHOL/ HDL RATIO VLDL cholesterol suraj 25 mg/dL 5-40 Not Available [facility] ([facility]) [address] [facility], [place], [address], 06/19/2023 14:37:19 06/18/19 24 06/19/2023 LIPID PANEL W/ CHOL/ HDL RATIO LDL chol calc ([facility]) 95 mg/dL 0-99 Not Available [facility] ([facility]) [address] [facility], [place], [address], 06/19/2023 14:37:19 06/18/19 24 06/19/2023 LIPID PANEL W/ CHOL/ HDL RATIO T. chol/HDL ratio 3.6 ratio 0.0-4. 4 T. Chol/ HDL Ratio Men Women 1/2 Avg.R isk 3.4 3.3 Avg.R isk 5.0 4.4 2X Avg.R isk 9.6 7.1 3X Avg.R isk 23.4 11.0 Not Available [facility] ([facility]) [address] [place], [address], 06/19/2023 14:37:19 06/18/19 24 06/19/2023 TSH+F REE T4 TSH 1.580 uIU/m L 0.450- 4.500 Not Available [facility] ([facility]) [address] [place], [address], 06/19/2023 14:37:19 06/18/19 24 06/19/2023 TSH+F REE T4 T4,free(dire ct) 1.00 NG/dL 0.82-1 .77 Not Available [facility] ([facility]) [address] [place], [address], 06/19/2023 14:37:19 06/18/19 24 06/19/2023 COMP. METAB OLIC PANEL (14) glucose 111 mg/dL 70-99 above high normal Not Available [facility] ([facility]) [address] [place], [address], 06/19/2023 14:37:20 06/18/19 24 06/19/2023 COMP. METAB OLIC PANEL (14) BUN 8 mg/dL 6-24 Not Available [facility] ([facility]) [address] [place], [address], 06/19/2023 14:37:20 06/18/19 24 06/19/2023 COMP. METAB OLIC PANEL (14) creatinine 0.83 mg/dL 0.57-1 .00 Not Available [facility] ([facility]) [address] [place], [address], 06/19/2023 14:37:20 06/18/19 24 06/19/2023 COMP. METAB OLIC PANEL (14) eGFR 91 mL/mi n/1.7 3 >59 Not Available [facility] ([facility]) [address] [place], [address], 06/19/2023 14:37:20 06/18/19 24 06/19/2023 COMP. METAB OLIC PANEL (14) BUN/creatini ne ratio 10 9-23 Not Available [facility] ([facility]) [address], [place], [address], 06/19/2023 14:37:20 06/18/19 24 06/19/2023 COMP. METAB OLIC PANEL (14) sodium 141 mmol/ L 134-14 4 Not Available [facility] ([facility]) [address], [place], [address], 06/19/2023 14:37:20 06/18/19 24 06/19/2023 COMP. METAB OLIC PANEL (14) potassium 4.3 mmol/ L 3.5-5. 2 Not Available [facility] ([facility]) [address] [place], [address], 06/19/2023 14:37:20 06/18/19 24 06/19/2023 COMP. METAB OLIC PANEL (14) chloride 104 mmol/ L 96-106 Not Available [facility] ([facility]) [address], [place], [address], 06/19/2023 14:37:20 06/18/19 24 06/19/2023 COMP. METAB OLIC PANEL (14) carbon dioxide, total 25 mmol/ L 20-29 Not Available [facility] ([facility]) [address] [facility], [place], [address], 06/19/2023 14:37:20 06/18/19 24 06/19/2023 COMP. METAB OLIC PANEL (14) calcium 8.8 mg/dL 8.7-10 .2 Not Available [facility] ([facility]) [address] [facility] [place], [address], 06/19/2023 14:37:20 06/18/19 24 06/19/2023 COMP. METAB OLIC PANEL (14) protein, total 6.1 g/dL 6.0-8. 5 Not Available [facility] ([facility]) [address] [facility] [place], [address], 06/19/2023 14:37:20 06/18/19 24 06/19/2023 COMP. METAB OLIC PANEL (14) albumin 4.0 g/dL 3.9-4. 9 Not Available [facility] ([facility]) [address] [facility], [place], [address], 06/19/2023 14:37:20 06/18/19 24 06/19/2023 COMP. METAB OLIC PANEL (14) globulin, total 2.1 g/dL 1.5-4. 5 Not Available [facility] ([facility]) [address] [facility], [place], [address], 06/19/2023 14:37:20 06/18/19 24 06/19/2023 COMP. METAB OLIC PANEL (14) A/G ratio 1.9 1.2-2. 2 Not Available [facility] ([facility]) [address] [facility], [place], [address], 06/19/2023 14:37:20 06/18/19 24 06/19/2023 COMP. METAB OLIC PANEL (14) bilirubin, total 0.4 mg/dL 0.0-1. 2 Not Available [facility] ([facility]) [address] [facility], [place], [address], 06/19/2023 14:37:20 06/18/19 24 06/19/2023 COMP. METAB OLIC PANEL (14) alkaline phosphatase 86 IU/L 44-121 Not Available [facility] ([facility]) [address] [facility], [place], [address], 06/19/2023 14:37:20 06/18/19 24 06/19/2023 COMP. METAB OLIC PANEL (14) AST (SGOT) 14 IU/L 0-40 Not Available [facility] ([facility]) [address] [facility], [place], [address], 06/19/2023 14:37:20 06/18/19 24 06/19/2023 COMP. METAB OLIC PANEL (14) ALT (SGPT) 11 IU/L 0-32 Not Available [facility] ([facility]) [address] [facility], [place], [address], 06/19/2023 14:37:20 06/18/19 24 06/19/2023 VITAM IN B12 AND FOLAT E vitamin B12 331 pg/mL 232-12 45 Not Available [facility] ([facility]) [address] [facility], [place], [address], 06/19/2023 14:37:20 06/18/19 24 06/19/2023 VITAM IN B12 AND FOLAT E folate (folic acid), serum 13.3 NG/mL >3.0 A serum folat e hector ntrat ion of less than 3.1 ng/mL is consi dered to repre sent clini suraj defic iency . Not Available [facility] ([facility]) [address] [facility], [place], [address], 06/19/2023 14:37:20 06/18/19 24 06/19/2023 HEMOG LOBIN A1C hemoglobin A1C 5.5 % 4.8-5. 6 Predi abete s: 5.7 - 6.4 Diabe kaur: >6.4 Glyce abby contr ol for adult s with diabe kaur: <7.0 Not Available [facility] ([facility]) [address] [place], [address], 06/19/2023 14:37:21 06/18/19 24 06/19/2023 INSUL IN insulin 26.7 uIU/m L 2.6-24 .9 above high normal Not Available [facility] ([facility]) [address] [facility], [place], [address], 06/19/2023 14:37:22 06/18/19 24 06/19/2023 CBC WITH DIFFE RENTI AL/PL ATELE T WBC 8.8 x10e3 /uL 3.4-10 .8 Not Available [facility] ([facility]) [address] [facility], [place], [address], 06/19/2023 14:37:22 06/18/19 24 06/19/2023 CBC WITH DIFFE RENTI AL/PL ATELE T RBC 4.23 x10e6 /uL 3.77-5 .28 Not Available [facility] ([facility]) [address] [facility], [place], [address], 06/19/2023 14:37:22 06/18/19 24 06/19/2023 CBC WITH DIFFE RENTI AL/PL ATELE T hemoglobin 13.1 g/dL 11.1-1 5.9 Not Available [facility] ([facility]) [address] [facility], [place], [address], 06/19/2023 14:37:22 06/18/19 24 06/19/2023 CBC WITH DIFFE RENTI AL/PL ATELE T hematocrit 39.3 % 34.0-4 6.6 Not Available [facility] ([facility]) [address] [facility], [place], [address], 06/19/2023 14:37:22 06/18/19 24 06/19/2023 CBC WITH DIFFE RENTI AL/PL ATELE T MCV 93 fL 79-97 Not Available [facility] ([facility]) [address] [place], [address], 06/19/2023 14:37:22 06/18/19 24 06/19/2023 CBC WITH DIFFE RENTI AL/PL ATELE T MCH 31.0 pg 26.6-3 3.0 Not Available [facility] ([facility]) [address] [place], [address], 06/19/2023 14:37:22 06/18/19 24 06/19/2023 CBC WITH DIFFE RENTI AL/PL ATELE T MCHC 33.3 g/dL 31.5-3 5.7 Not Available [facility] ([facility]) [address] [facility], [place], [address], 06/19/2023 14:37:22 06/18/19 24 06/19/2023 CBC WITH DIFFE RENTI AL/PL ATELE T RDW 12.9 % 11.7-1 5.4 Not Available [facility] ([facility]) [address] [facility], [place], [address], 06/19/2023 14:37:22 06/18/19 24 06/19/2023 CBC WITH DIFFE RENTI AL/PL ATELE T platelets 263 x10e3 /uL 150-45 0 Not Available [facility] ([facility]) [address] [facility], [place], [address], 06/19/2023 14:37:22 06/18/19 24 06/19/2023 CBC WITH DIFFE RENTI AL/PL ATELE T neutrophils 70 % notest ab. Not Available [facility] ([facility]) [address] [facility], [place], [address], 06/19/2023 14:37:22 06/18/19 24 06/19/2023 CBC WITH DIFFE RENTI AL/PL ATELE T lymphs 18 % notest ab. Not Available [facility] ([facility]) [address] [facility], [place], [address], 06/19/2023 14:37:22 06/18/19 24 06/19/2023 CBC WITH DIFFE RENTI AL/PL ATELE T monocytes 8 % notest ab. Not Available [facility] ([facility]) [address] [place], [address], 06/19/2023 14:37:22 06/18/19 24 06/19/2023 CBC WITH DIFFE RENTI AL/PL ATELE T eos 2 % notest ab. Not Available [facility] ([facility]) [address] [place], [address], 06/19/2023 14:37:22 06/18/19 24 06/19/2023 CBC WITH DIFFE RENTI AL/PL ATELE T basos 1 % notest ab. Not Available [facility] ([facility]) [address] [facility], [place], [address], 06/19/2023 14:37:22 06/18/19 24 06/19/2023 CBC WITH DIFFE RENTI AL/PL ATELE T neutrophils (absolute) 6.2 x10e3 /uL 1.4-7. 0 Not Available [facility] ([facility]) [address] [facility], [place], [address], 06/19/2023 14:37:22 06/18/19 24 06/19/2023 CBC WITH DIFFE RENTI AL/PL ATELE T lymphs (absolute) 1.6 x10e3 /uL 0.7-3. 1 Not Available [facility] ([facility]) [address] [facility], [place], [address], 06/19/2023 14:37:22 06/18/19 24 06/19/2023 CBC WITH DIFFE RENTI AL/PL ATELE T monocytes(ab solute) 0.7 x10e3 /uL 0.1-0. 9 Not Available [facility] ([facility]) [address] [facility], [place], [address], 06/19/2023 14:37:22 06/18/19 24 06/19/2023 CBC WITH DIFFE RENTI AL/PL ATELE T eos (absolute) 0.2 x10e3 /uL 0.0-0. 4 Not Available [facility] ([facility]) [address] [facility], [place], [address], 06/19/2023 14:37:22 06/18/19 24 06/19/2023 CBC WITH DIFFE RENTI AL/PL ATELE T baso (absolute) 0.1 x10e3 /uL 0.0-0. 2 Not Available [facility] ([facility]) [address] [facility], [place], [address], 06/19/2023 14:37:22 06/18/19 24 06/19/2023 CBC WITH DIFFE RENTI AL/PL ATELE T immature granulocytes 1 % notest ab. Not Available [facility] ([facility]) [address] [facility], [place], [address], 06/19/2023 14:37:22 06/18/19 24 06/19/2023 CBC WITH DIFFE RENTI AL/PL ATELE T immature grans (abs) 0.0 x10e3 /uL 0.0-0. 1 Not Available [facility] ([facility]) [address] [facility], [place], [address], 06/19/2023 14:37:22 12/20/19 24 12/19/2023 MAMMO , scree hay, digit al, bilat eral No observ ation record ed. [address] [facility], [place], [address], 12/20/2023 13:28:47 01/20/20 24 01/19/2024 CT, abdom en + pelvi s, w/ contr ast No observ ation record ed. [address], [address], 01/20/2024 10:01:33 Result Notes None recorded. Problems Name Problem SNOMED Code Status Onset Date Resolution Date Notes Provider Name and Address Organization Details Recorded Time Smoker 40754165 Active 2023 ERIK Castillo Attn: Veronica yañez,[address] [facility], [place], [address], [facility] 10:05:47 Acne 19724631 Active 2023 ERIK Castillo Attn: Veronica yañez,[address] [facility], [place], [address], [place] [facility] 4 10:05:48 Hoarse 14196826 Active 2023 ERIK Castillo Attn: Accountin g,[address] [place], [address], [place] [facility] 4 10:05:49 Obesity 539213084 Active 2023 ERIK Castillo Attn: Accountin g,[address] [place], [place], [address] [place] [address] 2, [place] [facility] 4 10:05:51 Body mass index 40+ - severely obese 892470856 Active 2023 ERIK Castillo Attn: Accountin g,[address] [place], [place], [address] [place] [address] 2, [place] [facility] 4 10:05:53 Long-term drug therapy Active 2023 ERIK Castillo Attn: Accountin g,[address] [place], [address], [place] [facility] 4 10:05:54 Diabetes mellitus screening Active 2023 ERIK Castillo Attn: Kimin g,[address] [place], [address], [place] [facility] 4 10:05:56 Cholesterol screening Active 2023 ERIK Castillo Attn: Accountin g,[address] [place], [address], [place] [facility] 4 10:05:57 Gastroesophage al reflux disease without esophagitis 964525848 Active 2023 ERIK Castillo Attn: Accountin g,[address] [place], [address], [place] [facility] 4 10:05:59 Mixed anxiety and depressive disorder 956936896 Active 2023 ERIK Castillo Attn: Accountin g,[address] [place], [address], [facility] 4 10:06:00 Hematoma of back Active 2023 ERIK Castillo Attn: Veronica yañez,[address], [place], [address], [facility] 4 16:25:00 Problem Notes None recorded. Procedures Surgical History Date Name Laterality Status Provider Name and Address Organization Details Recorded Time section completed Catherine Hogue MA [facility] 06/14/2023 10:11:04 Tonsillectomy completed Catherine Hogue MA [facility] 06/14/2023 10:11:10 Imaging Results Imaging Date Name Status LastModified by Organiz ation Details LastModified Time 12/19/2023 MAMMO, screening, digital, bilateral completed [address] [place] [address], [address], 12/20/2023 13:28:47 01/19/2024 CT, abdomen + pelvis, w/ contrast completed [address], [address], 01/20/2024 10:01:33 Procedure Notes None recorded. Medical [...] Updated DateTime 4 170.18 cm 42.3 kg/m2 901244. 94 g 20 /min 98 % 98 % 78 /min 126 mm[Hg] 82 mm[Hg] Catherine Hogue MA [facility] 09:42:04 Date Recorded Systolic blood pressure Diastolic blood pressure Provider Name and Address Organization Details Last Updated DateTime 06/14/2023 124 mm[Hg] 80 mm[Hg] ERIK Castillo Attn: Accounting,[address] [place], [address], [facility] 06/14/2023 09:58:57 Date Recorded Body height Body mass index (BMI) Body weight Respiratory rate Oxygen saturation Oxygen saturation in Arterial blood by Pulse oximetry Heart rate Systolic blood pressure Diastolic blood pressure Provider Name and Address Organization Details Last Updated DateTime 4 170.18 cm 41.8 kg/m2 032652. 16 g 20 /min 97 % 97 % 69 /min 122 mm[Hg] 82 mm[Hg] Catherine Hogue MA [facility] 09:51:45 Date Recorded Systolic blood pressure Diastolic blood pressure Provider Name and Address Organization Details Last Updated DateTime 01/23/2024 110 mm[Hg] 80 mm[Hg] ERIK Castillo Attn: Accounting,[address] [facility], [place], [address], [place] [facility] 01/23/2024 10:13:08 Social History Question Answer Notes LastModified by Organizat ion Details LastModified Time Tobacco Smoking Status Current Every Day Smoker Catherine Hogue MA [facility], [facility] 06/14/2023 09:38:33 What Is Your Level Of [...] High Blood Pressure N Atrial Fibrillation N Thyroid Problems N Kidney or Bladder Problems N GI Problems N Depression N COPD N Blood Clots N Skin Problems N Anemia N Heart Attack (MD) N Diabetes N Anxiety Disorder Y Muscle, Joint, or Bone Problems N Seizures/Epilepsy N Acid Reflux (GERD) Y Cancer N Stroke N Asthma N Allergies Y High Cholesterol N Hepatitis N Liver Disease N Headaches Y Osteoporosis N Heart Failure N Gynecological History Statement/Question Response Flow Moderate [...] SNOMED-CT Code Diagnosis ICD10 Code Diagnosis Note [id number] ERIK Castillo [facility] [employer] [address] [place] [address] 06/14/2023 09:27:04 06/14/2023 11:04:15 Mixed anxiety and depressive disorder 552662894 F41.8 stable on buspar and lexapro therapy. infrequent alprazolam 0.25mg use Gastroesop hageal reflux disease without esophagitis 164932883 K21.9 Start omeprazole 40mg daily. assess if hoarseness improves after PPI therapy is starting daily. Cholesterol screening 27 1077718 Z13.220 fasting lipids due Diabetes m ellitus screening 219614726 Z13.1 a1c screening due Long-term drug therapy 903511179 Z79.899 cmp, cbc and b12, folate labs are due Body mass index 40+ - severely obese 825821315 Z68.41 fasting insulin and thyroid panel ordered Obesity 063547350 E66.9 discussed healthy diet, exercise, controllin g carbohydra kaur and added sugars in the diet Hoarse 93391447 R49.0 In line with recent sinus and allergy drainage, etc. trial of prednisone 40mg daily x 5 days. if this continues we can refer to ENT as next step. Hoarseness may also be unmanaged reflux symptoms. Acne 60589900 L70.9 Rx trial of tretinoin 0.025% cream qhs Smoker 81536339 F17.200 smoking cessation discussed [id number] ERIK Castillo [facility] [employer] [address] [place] [address] 01/23/2024 09:44:49 01/23/2024 10:14:05 Contusion of lower back 718504478 S30.0XXD Supportive care at this time using ice and heat along with anti-infla mmatory and Tylenol alternatin g Contusion of left buttock 7028466274 7106 S30.0XXD Treatment as above Hematoma of back 6393680 [address] scan of the [...] Alvarado Member ID Guarantor Name 06/14/2023 1 [facility] ON OR AFTER 08/18/20 (MEDICAID REPLACEMENT - O) [facility] [id number] [facility] 01/23/2024 1 [facility] ON OR AFTER 08/18/20 (MEDICAID REPLACEMENT - HMO) Emily Pool [id number] [facility] Notes Date Note Type Note Provider Name and Address Organization Details Recorded Time 06/14/2023 text/html Anxiety/Depressi onRe ported bypatient.Notes:pt is taking buspar 5mg bid and lexapro 20mg daily and PRN alprazolam. stable. no c/o.Reflux/GERDRepor diaz bypatient.Notes:pt is not taking daily antacid. she does c/o raspy , hoarse voice. ERIK Castillo Attn: Accounting[address] [place], [address], [place] [facility] 06/20/2023 00:00:45 01/23/2024 text/html [...] bit better. ERIK Castillo Attn: Accounting,[address] [facility], [place], [address], [facility] 02/13/2024 16:25:16 OBGyn Episode No OBEpisode recorded.
--- OUTSIDE RECORDS SUMMARY | 2024-06-12 01:13 | XMS_ITS | Data Portability ---
Author Organization [facility] [email or web address], Main Office Address [address] [place] [address] Assessment No assessment recorded. Plan of Treatment Reminders Order Date Submit Date Provider Last Modified By Organization Details Last Modified Time Details Appointments None recorded. Lab None recorded. Referral None recorded. Procedures None recorded. Surgeries None recorded. Imaging None recorded. Medication Orders phentermine 37.5 mg tablet 2022 023 [id number] [id number], [address] [facility], [place], [place], [id number], 3 23:04:59 Patient TargetsNo targets recorded. Patient [...] (dete karin, gluli sine) . Not Available [facility] [address] [place], [address], 07/12/2021 16:23:05 07/12/19 22 07/12/2021 CBC (INCL UDES DIFF/ PLT) white blood cell count 7.0 thous and/u L 3.8-10 .8 normal Not Available [address], [address], 07/12/2021 16:23:04 07/12/19 22 07/12/2021 CBC (INCL UDES DIFF/ PLT) red blood cell count 4.43 jamarcus on/uL 3.80-5 .10 normal Not Available [address], [address], 07/12/2021 16:23:04 07/12/19 22 07/12/2021 CBC (INCL UDES DIFF/ PLT) hemoglobin 13.7 g/dL 11.7-1 5.5 normal Not Available [address], [address], 07/12/2021 16:23:04 07/12/19 22 07/12/2021 CBC (INCL UDES DIFF/ PLT) hematocrit 41.8 % 35.0-4 5.0 normal Not Available [address], [address], 07/12/2021 16:23:04 07/12/19 22 07/12/2021 CBC (INCL UDES DIFF/ PLT) MCV 94.4 fL 80.0-1 00.0 normal Not Available [address], [address], 07/12/2021 16:23:04 07/12/19 22 07/12/2021 CBC (INCL UDES DIFF/ PLT) MCH 30.9 pg 27.0-3 3.0 normal Not Available [address], [address], 07/12/2021 16:23:04 07/12/19 22 07/12/2021 CBC (INCL UDES DIFF/ PLT) MCHC 32.8 g/dL 32.0-3 6.0 normal Not Available [address], [address], 07/12/2021 16:23:04 07/12/19 22 07/12/2021 CBC (INCL UDES DIFF/ PLT) RDW 12.1 % 11.0-1 5.0 normal Not Available [address], [address], 07/12/2021 16:23:04 07/12/19 22 07/12/2021 CBC (INCL UDES DIFF/ PLT) platelet count 252 thous and/u L 140-40 0 normal Not Available [address], [address], 07/12/2021 16:23:04 07/12/19 22 07/12/2021 CBC (INCL UDES DIFF/ PLT) MPV 10.8 fL 7.5-12 .5 normal Not Available [address], [address], 07/12/2021 16:23:04 07/12/19 22 07/12/2021 CBC (INCL UDES DIFF/ PLT) absolute neutrophils 4984 cells /uL 1500-7 800 normal Not Available [address], [address], 07/12/2021 16:23:04 07/12/19 22 07/12/2021 CBC (INCL UDES DIFF/ PLT) absolute lymphocytes 1225 cells /uL 850-39 00 normal Not Available [address], [address], 07/12/2021 16:23:04 07/12/19 22 07/12/2021 CBC (INCL UDES DIFF/ PLT) absolute monocytes 602 cells /uL 200-95 0 normal Not Available [address] [place], [address], 07/12/2021 16:23:04 07/12/19 22 07/12/2021 CBC (INCL UDES DIFF/ PLT) absolute eosinophils 119 cells /uL 15-500 normal Not Available [facility] [address], [address], 07/12/2021 16:23:04 07/12/19 22 07/12/2021 CBC (INCL UDES DIFF/ PLT) absolute basophils 70 cells /uL 0-200 normal Not Available [facility] [address], [address], 07/12/2021 16:23:04 07/12/19 22 07/12/2021 CBC (INCL UDES DIFF/ PLT) neutrophils 71.2 % normal Not Available [facility] [address], [address], 07/12/2021 16:23:04 07/12/19 22 07/12/2021 CBC (INCL UDES DIFF/ PLT) lymphocytes 17.5 % normal Not Available [facility] [address], [address], 07/12/2021 16:23:04 07/12/19 22 07/12/2021 CBC (INCL UDES DIFF/ PLT) monocytes 8.6 % normal Not Available [facility] [address], [address], 07/12/2021 16:23:04 07/12/19 22 07/12/2021 CBC (INCL UDES DIFF/ PLT) eosinophils 1.7 % normal Not Available [facility] [address], [address], 07/12/2021 16:23:04 07/12/19 22 07/12/2021 CBC (INCL UDES DIFF/ PLT) basophils 1.0 % normal Not Available [facility] [address], [address], 07/12/2021 16:23:04 07/12/19 22 07/12/2021 TSH W/REF MICHELLE TO FT4 TSH w/reflex to FT4 1.06 mIU/L normal Refer ence Range > or = 20 Years 0.40- 4.50 Pregn yulia Range s First trime ster 0.26- 2.66 Secon d trime ster 0.55- 2.73 Third trime ster 0.43- 2.91 Not Available [facility] [address], [place], [address], 07/12/2021 16:23:03 07/12/19 22 07/12/2021 HEMOG LOBIN [...] Care in Diabe kaur(A DA). Not Available [facility] [address], [place], [address], 07/12/2021 16:23:03 07/12/19 22 07/12/2021 COMPR EHENS JOHN METAB OLIC PANEL glucose 88 mg/dL 65-99 normal Fasti ng refer ence inter joyce Not Available [facility] [address], [address], 07/12/2021 16:23:02 07/12/19 22 07/12/2021 COMPR EHENS JOHN METAB OLIC PANEL urea nitrogen (BUN) 10 mg/dL 7-25 normal Not Available [address], [address], 07/12/2021 16:23:02 07/12/19 22 07/12/2021 COMPR EHENS JOHN METAB OLIC PANEL creatinine 0.81 mg/dL 0.50-1 .10 normal Not Available [address], [address], 07/12/2021 16:23:02 07/12/19 22 07/12/2021 COMPR EHENS JOHN METAB OLIC PANEL eGFR non-afr. hungarian 91 mL/mi n/1.7 3m2 > or = 60 normal Not Available [address], [address], 07/12/2021 16:23:02 07/12/19 22 07/12/2021 COMPR EHENS JOHN METAB OLIC PANEL eGFR 106 mL/mi n/1.7 3m2 > or = 60 normal Not Available [address], [address], 07/12/2021 16:23:02 07/12/19 22 07/12/2021 COMPR EHENS JOHN METAB OLIC PANEL BUN/creatini ne ratio not applic able (calc ) 6-22 Not Available [address], [address], 07/12/2021 16:23:02 07/12/19 22 07/12/2021 COMPR EHENS JOHN METAB OLIC PANEL sodium 142 mmol/ L 135-14 6 normal Not Available [address], [address], 07/12/2021 16:23:02 07/12/19 22 07/12/2021 COMPR EHENS JOHN METAB OLIC PANEL potassium 4.0 mmol/ L 3.5-5. 3 normal Not Available [address], [address], 07/12/2021 16:23:02 07/12/19 22 07/12/2021 COMPR EHENS JOHN METAB OLIC PANEL chloride 107 mmol/ L 98-110 normal Not Available [address], [address], 07/12/2021 16:23:02 07/12/19 22 07/12/2021 COMPR EHENS JOHN METAB OLIC PANEL carbon dioxide 26 mmol/ L 20-32 normal Not Available [address], [address], 07/12/2021 16:23:02 07/12/19 22 07/12/2021 COMPR EHENS JOHN METAB OLIC PANEL calcium 8.4 mg/dL 8.6-10 .2 low Not Available [address], [address], 07/12/2021 16:23:02 07/12/19 22 07/12/2021 COMPR EHENS JOHN METAB OLIC PANEL protein, total 6.2 g/dL 6.1-8. 1 normal Not Available [address], [address], 07/12/2021 16:23:02 07/12/19 22 07/12/2021 COMPR EHENS JOHN METAB OLIC PANEL albumin 4.1 g/dL 3.6-5. 1 normal Not Available [address], [address], 07/12/2021 16:23:02 07/12/19 22 07/12/2021 COMPR EHENS JOHN METAB OLIC PANEL globulin 2.1 g/dL_ (calc ) 1.9-3. 7 normal Not Available [address], [address], 07/12/2021 16:23:02 07/12/19 22 07/12/2021 COMPR EHENS JOHN METAB OLIC PANEL albumin/glob ulin ratio 2.0 (calc ) 1.0-2. 5 normal Not Available [address], [address], 07/12/2021 16:23:02 07/12/19 22 07/12/2021 COMPR EHENS JOHN METAB OLIC PANEL bilirubin, total 0.9 mg/dL 0.2-1. 2 normal Not Available [address], [address], 07/12/2021 16:23:02 07/12/19 22 07/12/2021 COMPR EHENS JOHN METAB OLIC PANEL alkaline phosphatase 67 U/L 31-125 normal Not Available [address], [address], 07/12/2021 16:23:02 07/12/19 22 07/12/2021 COMPR EHENS JOHN METAB OLIC PANEL AST 11 U/L 10-30 normal Not Available [address], [address], 07/12/2021 16:23:02 07/12/19 22 07/12/2021 COMPR EHENS JOHN METAB OLIC PANEL ALT 8 U/L 6-29 normal Not Available [address], [address], 07/12/2021 16:23:02 07/12/19 22 07/12/2021 LIPID PANEL , STAND AUNG cholesterol, total 155 mg/dL <200 normal Not Available [address], [address], 07/12/2021 16:23:01 07/12/19 22 07/12/2021 LIPID PANEL , STAND AUNG HDL cholesterol 52 mg/dL > or = 50 normal Not Available [address], [address], 07/12/2021 16:23:01 07/12/19 22 07/12/2021 LIPID PANEL , STAND AUNG triglyceride s 75 mg/dL <150 normal Not Available [address], [address], 07/12/2021 16:23:01 07/12/19 22 07/12/2021 LIPID PANEL [...] 2061- 2068 (http ://ed ucati on.Yvette [employer]. com/f aq/FA Q164) Not Available [address], [address], 07/12/2021 16:23:01 07/12/19 22 07/12/2021 LIPID PANEL , STAND AUNG chol/HDLC ratio 3.0 (calc ) <5.0 normal Not Available [address], [address], 07/12/2021 16:23:01 07/12/19 22 07/12/2021 LIPID PANEL , STAND AUNG non HDL cholesterol 103 mg/dL _(suraj c) <130 normal For patie nts with diabe kaur plus 1 major ASCVD risk facto r, treat ing to a non-H DL-C goal of <100 mg/dL (LDL- C of <70 mg/dL ) is consi shi powell n. Not Available [address], [address], 07/12/2021 16:23:01 07/20/19 22 07/20/2021 REFLE XIVE URINE CULTU RE reflexive urine culture NO CULTU RE INDIC ATED Not Available [address], [address], 07/20/2021 07:34:57 07/20/19 22 07/20/2021 URINA LYSIS , COMPL ETE W/REF MICHELLE TO CULTU RE color yellow yellow normal Not Available [address], [address], 07/20/2021 07:34:55 07/20/19 22 07/20/2021 URINA LYSIS , COMPL ETE W/REF MICHELLE TO CULTU RE appearance clear clear normal Not Available [address], [address], 07/20/2021 07:34:55 07/20/19 22 07/20/2021 URINA LYSIS , COMPL ETE W/REF MICHELLE TO CULTU RE specific gravity 1.008 1.001- 1.035 normal Not Available [address], [address], 07/20/2021 07:34:55 07/20/19 22 07/20/2021 URINA LYSIS , COMPL ETE W/REF MICHELLE TO CULTU RE pH 5.5 5.0-8. 0 normal Not Available [address], [address], 07/20/2021 07:34:55 07/20/19 22 07/20/2021 URINA LYSIS , COMPL ETE W/REF MICEHLLE TO CULTU RE glucose negati ve negati ve normal Not Available [address] [address] [place], [address], 07/20/2021 07:34:55 07/20/19 22 07/20/2021 URINA LYSIS , COMPL ETE W/REF MICHELLE TO CULTU RE bilirubin negati ve negati ve normal Not Available [address] [place], [address], 07/20/2021 07:34:55 07/20/19 22 07/20/2021 URINA LYSIS , COMPL ETE W/REF MICHELLE TO CULTU RE ketones negati ve negati ve normal Not Available [address], [address], 07/20/2021 07:34:55 07/20/19 22 07/20/2021 URINA LYSIS , COMPL ETE W/REF MICHELLE TO CULTU RE occult blood negati ve negati ve normal Not Available [address] [place], [place], [address], 07/20/2021 07:34:55 07/20/19 22 07/20/2021 URINA LYSIS , COMPL ETE W/REF MICHELLE TO CULTU RE protein negati ve negati ve normal Not Available [address] [place], [address], 07/20/2021 07:34:55 07/20/19 22 07/20/2021 URINA LYSIS , COMPL ETE W/REF MICHELLE TO CULTU RE nitrite negati ve negati ve normal Not Available [facility] [address] [place], [address], 07/20/2021 07:34:55 07/20/19 22 07/20/2021 URINA LYSIS , COMPL ETE W/REF MICHELLE TO CULTU RE leukocyte esterase negati ve negati ve normal Not Available [facility] [address] [place], [address], 07/20/2021 07:34:55 07/20/19 22 07/20/2021 URINA LYSIS , COMPL ETE W/REF MICHELLE TO CULTU RE WBC none seen /hpf < or = 5 normal Not Available [address] [place], [address], 07/20/2021 07:34:55 07/20/19 22 07/20/2021 URINA LYSIS , COMPL ETE W/REF MICHELLE TO CULTU RE RBC none seen /hpf < or = 2 normal Not Available [address] [address] [place], [address], 07/20/2021 07:34:55 07/20/19 22 07/20/2021 URINA LYSIS , COMPL ETE W/REF MICHELLE TO CULTU RE squamous epithelial cells none seen /hpf < or = 5 normal Not Available [address], [address], 07/20/2021 07:34:55 07/20/19 22 07/20/2021 URINA LYSIS , COMPL ETE W/REF MICHELLE TO CULTU RE bacteria none seen /hpf none seen normal Not Available [address], [address], 07/20/2021 07:34:55 07/20/19 22 07/20/2021 URINA LYSIS , COMPL ETE W/REF MICHELLE TO CULTU RE hyaline cast none seen /lpf none seen normal Not Available [address], [address], 07/20/2021 07:34:55 Result Notes None recorded. Problems Name Problem SNOMED Code Status Onset Date Resolution Date Notes Provider Name and Address Organization Details Recorded Time Intermittent dysphagia 87580410 Active 2021 Not Available [facility] 3 04:51:15 Generalized anxiety disorder 44232856 Active Not Available [facility] 3 04:51:15 Chronic constipation 880904619 Active Not Available [facility] 3 04:51:15 Vitamin D deficiency 02672779 Active Not Available [facility] 3 04:51:15 Acid reflux 435920868 Active 2021 Not Available [facility] 3 04:51:15 Problem Notes None recorded. Procedures Surgical History Date Name Laterality Status Provider Name and Address Organization Details Recorded Time 07/05/19 Date of Last Colonoscopy completed Not Available [facility] 04/18/2022 04:43:00 Tonsillectomy completed Not Available [facility] 04/18/2022 04:43:03 completed Not Available [place] [address] 04/18/2022 04:43:03 completed Not Available [place] [address] 04/18/2022 04:43:03 Imaging Results None recorded. Procedure [...] % 78 /min 16 /min 97.6 [degF] 289068. 79 g 128 mm[Hg] 80 mm[Hg] Not Available [facility] 3 04:48:08 Date Recorded Body mass index (BMI) Body height Oxygen saturation Oxygen saturation in Arterial blood by Pulse oximetry Heart rate Respiratory rate Body temperature Body weight Systolic blood pressure Diastolic blood pressure Provider Name and Address Organization Details Last Updated DateTime 2 41 kg/m2 170.82 cm 97 % 97 % 68 /min 16 /min 98 [degF] 924784. 39 g 124 mm[Hg] 68 mm[Hg] Not Available [facility] 3 04:48:08 Date Recorded Body mass index (BMI) Body height Oxygen saturation Oxygen saturation in Arterial blood by Pulse oximetry Heart rate Respiratory rate Body weight Systolic blood pressure Diastolic blood pressure Provider Name and Address Organization Details Last Updated DateTime 2 41 kg/m2 170.82 cm 97 % 97 % 68 /min 16 /min 761729. 39 g 122 mm[Hg] 82 mm[Hg] Not Available [facility] 3 04:48:08 Date Recorded Body height Body mass index (BMI) Body weight Body temperature Heart rate Oxygen saturation Oxygen saturation in Arterial blood by Pulse oximetry Systolic blood pressure Diastolic blood pressure Provider Name and Address Organization Details Last Updated DateTime 3 170.82 cm 42.3 kg/m2 486810. 12 g 98.4 [degF] 73 /min 97 % 97 % 128 mm[Hg] 82 mm[Hg] Shanell Fagan RN [facility] 3 14:15:34 Date Recorded Systolic blood pressure Diastolic blood pressure Provider Name and Address Organization Details Last Updated DateTime 07/27/2022 120 mm[Hg] 80 mm[Hg] ERIK Castillo [address] [place] [address], [address], [address], [facility] 07/27/2022 14:34:16 Date Recorded Body height Body temperature Body mass index (BMI) Body weight Respiratory rate Oxygen saturation Oxygen saturation in Arterial blood by Pulse oximetry Heart rate Systolic blood pressure Diastolic blood pressure Provider Name and Address Organization Details Last Updated DateTime 3 170.82 cm 98.1 [degF] 42.3 kg/m2 140762. 12 g 16 /min 98 % 98 % 74 /min 140 mm[Hg] 80 mm[Hg] SARAH Davis [facility] 3 14:20:54 Social History Question Answer Notes LastModified by Organizat ion Details LastModified Time Tobacco Smoking Status Current Every Day Smoker Not Available [facility] 04/18/2022 04:42:12 What Is Your Level Of Alcohol Consumption? Occasional MIGRATION.44827 [id number] Information not available 04/18/2022 What Is Your Level Of Caffeine Consumption? Heavy Tea/daily MIGRATION.39965 94438 Information not available 04/18/2022 How Much Tobacco Do You Chew? None MIGRATION.53783 58797 Information not available 04/18/2022 In The 14 Days Before Symptom Onset, Have You Had Close Contact With A Laboratory-confir med COVID-19 While That Case Was Ill? No MIGRATION.89760 69771 Information not available 04/18/2022 In The 14 Days Before Symptom Onset, Have You Had Close Contact With A Person Who Is Under Investigation For COVID-19 While That Person Was Ill? No MIGRATION.52663 64689 Information not available 04/18/2022 Are You Currently Employed? Yes [email or web address] Information not available 09/20/2022 What Type Of Diet Are You Following? REGULAR MIGRATION.20021 74274 Information not available 04/18/2022 Which Illicit Or Recreational Drugs Have You Used? None MIGRATION.97804 81872 Information not available 04/18/2022 Do You Or Have You Ever Used E-cigarettes Or Vape? Never Used Electronic Cigarettes MIGRATION.19632 67955 Information not available 04/18/2022 What Is Your Occupation? [employer] MIGRATION.04607 27890 Information not available 04/18/2022 Have There Been Any Changes To Your Family Or Social Situation? No MIGRATION.65969 74812 Information not available 04/18/2022 Do You Use Insect Repellent Routinely? No MIGRATION.58203 70202 Information not available 04/18/2022 What Is Your Relationship Status? MIGRATION.77260 69309 Information not available 04/18/2022 Do You Use Your Seat Belt Or Car Seat Routinely? Yes MIGRATION.88753 50235 Information not available 04/18/2022 Do You Have Smoke And Carbon Monoxide Detectors In Your Home? Yes MIGRATION.81615 86607 Information not available 04/18/2022 At What Age Did You Start Smoking Tobacco? 17 MIGRATION.40041 14157 Information not available 04/18/2022 Are You Passively Exposed To Smoke? No MIGRATION.98829 31496 Information not available 04/18/2022 Do You Or Have You Ever Used Smokeless Tobacco? Never Used Smokeless Tobacco MIGRATION.02404 97683 Information not available 04/18/2022 How Much Tobacco Do You Smoke? 0.25 PPD MIGRATION.84162 72426 Information not available 04/18/2022 Do You Use Any Illicit Or Recreational Drugs? No MIGRATION.47493 43924 Information not available 04/18/2022 Do You Use Sunscreen Routinely? Yes MIGRATION.96001 15746 Information not available 04/18/2022 Have You Recently Traveled Abroad? No MIGRATION.54443 92518 Information not available 04/18/2022 Do You Have Any Dietary Restrictions? No MIGRATION.67165 10578 Information not available 04/18/2022 Do You Or Have You Ever Used Any Other Forms Of Tobacco Or Nicotine? No MIGRATION.69417 99199 Information not available 04/18/2022 Sex: Unknown Functional Status Question Answer Note LastModified by Organizat ion Details LastModified Time What is your exercise level? Occasional [id number] 26 Information not available 04/18/2022 Mental Status None recorded. Family History Relationship Description Onset Age of this Age Resolved Age Notes LastModified by Organization Details LastModified Time Mother Hypothyroidi sm MIGRATION.459 [id number] Not available 04/18/2022 04:43:08 Father Hypertensive disorder MIGRATION.356 [id number] Not available 04/18/2022 04:43:08 Unspecified Relation Neoplasm of lung MIGRATION.166 [id number] Not available 04/18/2022 04:43:08 Unspecified Relation Heart disease MIGRATION.725 [id number] Not available 04/18/2022 04:43:08 Unspecified Relation Kidney disease MIGRATION.151 [id number] Not available 04/18/2022 04:43:08 Unspecified Relation Diabetes mellitus MIGRATION.030 [id number] Not available 04/18/2022 04:43:08 Medical History Condition [...] toxoid, unspecified formulation 6 completed [facility] Available [facility] 04/18/[facility]22 05:02:32 Past Encounters Encounter ID Performer Location Encounter Start Date Encounter Closed Date Diagnosis/Indication Diagnosis SNOMED-CT Code Diagnosis ICD10 Code Diagnosis Note [id number] [facility] [address] [place] [address] 09/07/2020 00:00:00 09/17/2020 08:16:41 [id number] [facility] [address] [place] [address] 05/24/2021 00:00:00 06/16/2021 19:09:10 [id number] [facility] [address] [place] [address] 07/21/2021 00:00:00 08/17/2021 20:16:37 [id number] [facility] [address] [place] [address] 01/26/2022 00:00:00 02/15/2022 22:15:24 [id number] ERIK Castillo [facility] [address] [place] [address] 07/27/2022 14:04:24 07/27/2022 14:45:30 Adult health examination 666423467 Z00.01 annual wellness completed Generalize d anxiety disorder 60836676 F41.1 stable on lexapro 20mg daily and buspar 5mg bid-tid Acid reflux 708953986 K2 1.9 stable on omeprazole 40mg daily. Body mass index 40+ - severely obese 159681244 Z68.41 RX for phentermin e course. [id number] ERIK Castillo [facility] [address] [place] [address] 09/21/2022 14:14:25 09/21/2022 14:38:33 Generalized anxiety disorder 97728941 F41.1 stable on lexapro 20mg daily and buspar 5mg bid-tid Acid reflux 272776614 K2 1.9 stable on omeprazole 40mg daily. Body mass index 40+ - severely obese 349723590 Z68.41 pt can start phentermin e when [...] Alvarado Member ID Guarantor Name 07/27/2022 1 [facility] ON OR AFTER 02/19/2020 - DUAL ELIGIBLE (MEDICARE REPLACEMENT/ ADVANTAGE - HMO) Emily A Pool [id number] Emily Ann [employer] 09/21/2022 1 [facility] ON OR AFTER 02/19/2020 - DUAL ELIGIBLE (MEDICARE REPLACEMENT/ ADVANTAGE - HMO) Emily A Pool [id number] Emily Alla [employer] Notes Date Note Type Note Provider Name [...] good; no apathy; maintaining functionality Not Available [facility] [email or web address] 06/16/2021 19:09:10 2 text/html Anxiety/DepressionReporte d bypatient.Quality:symptom [...] also like to discuss labs Not Available [facility] 08/17/2021 20:16:37 2 text/html Anxiety/DepressionReporte d bypatient.Quality:symptom [...] good; no apathy; maintaining functionality Not Available [facility] 02/15/2022 22:15:24 3 text/html Anxiety/DepressionReporte d bypatient.Severity:denies [...] vomiting;heartburn here for wellness ERIK Castillo [address] [address], [place], [address], [facility] 08/15/2022 23:09:36 3 text/html Generic HPI TemplateReported bypatient.Notes:Pt is here to f//u on phentermine but she didnt start taking it. She wants to talk to you about it more. ERIK Castillo [address] [facility], [address] [place] [address], [place], [address], [place] [facility] 10/18/2022 23:40:45 OBGyn Episode No OBEpisode recorded.
--- NOTE | 2024-06-12 07:21 | WPDHPUPDATE1 ---
History and Physical Update Update Date/Time: 06/12/24 07:21 History and Physical has been reviewed, including an updated exam of the patient. There are NO changes in the patient's condition. Risks, benefits, and alternatives have been discussed and questions answered. Patient agrees to proceed with procedure.
--- NOTE | 2024-06-12 08:28 | WPDANESEPPF ---
Anes - Initial Pre Proc Eval Procedure: Operation Date: 06/12/24 09:30 Proposed Procedures p Robotic Assisted Total Vaginal Hysterectomy with Bilateral Salpingectomy, Left Oophorectomy - Raz Lopes MD Date/Time: 06/12/24 08:28 Surgeon: Raz Lopes MD Pre Op Diagnosis: Enlarged, Uterus, Prolapse, Pain Irg Bleed Patient Data Age: 43 Gender: F Height: 1.7 m Weight: 120.5 kg Allergies Allergy/AdvReac Type Severity Reaction Status Date / Time No Known Allergies Allergy Verified 06/08/24 11:30 Home Medications ?Medication ?Instructions ?Recorded ?Confirmed ?Type buspirone 5 mg tablet 5 mg PO DAILY 05/14/22 06/12/24 History escitalopram oxalate 20 mg tablet 20 mg PO DAILY 05/14/22 06/12/24 History pantoprazole 40 mg tablet,delayed 40 mg PO DAILY 06/08/24 06/12/24 History release hydrocodone 5 mg-acetaminophen 325 1 tablet PO Q4H PRN pain #20 tabs 06/12/24 Rx mg tablet Patient hx anesthesia problems: none Family hx anesthesia problems: none Results Review: All pre-operative results and documents have been reviewed as part of the pre-operative evaluation. [facility], [facility] Past Medical History Medical History Morbid obesity Social History Social History Years smoked: 25 Smoking status: Current every day smoker Tobacco type: cigarettes Alcohol intake: current Drinks per week: 2 Alcohol use details: RARE Substance use: current Substance use type: marijuana Other substance usage details: Daily Living arrangements: with family Additional living arrangements comments: CHILDREN Spiritual care concerns: No Anes - Eval Final PreProcedure Day of Procedure 06/12/24 08:28 Patient weight: morbidly obese Heart: regular rate and rhythm Lungs: clear to auscultation Airway: Mallampati scale class II Neurological: alert and oriented Last oral intake: >/= 8 hours ASA classification: III Emergent: no Anesthetic plan: proceed Anesthesia type and monitoring: general ETT and standard monitoring Results Review: All pre-operative results and documents have been reviewed as part of the pre-operative evaluation. Informed Consent: The patient's anesthetic plan and its attendant risks and benefits were discussed with the patient/family/POA. Questions were solicited and answers provided to the satisfaction of the patient/family/POA.
[2024-06-12] MEDS: LACTATED RINGERS 1,000 ML 30 ML IV CONT ×3 (08:49→11:01)
[2024-06-12] MEDS: KETOROLAC 15 MG/ML VIAL (*BKC) IV PUSH (08:49)
[2024-06-12] MEDS: ACETAMINOPHEN 500 MG TABLET 1000 MG PO ×3 (08:49→21:10)
[2024-06-12 08:51] LABS: BEDSIDEPREGUCG Negative (Negative)
[2024-06-12] MEDS: ceFAZolin 3 GM/D5W 100 ML 100 ML IVPB (09:00)
--- NOTE | 2024-06-12 10:27 | P.OP_ITS ---
Procedure Note - Detailed Date of Procedure 06/12/24 Pre-op Diagnosis Enlarged, Uterus, Prolapse, Pain Irg Bleed Post-op Diagnosis Same Procedure Performed Robotic total vaginal hysterectomy bilateral salpingectomy left oophorectomy with extensive lysis of adhesions Surgeon Raz Lopes MD Anesthesia General Indications 43-year-old female with large left ovarian cyst pelvic pain bleeding Findings Enlarged uterus. Adhesions from the omentum to the anterior abdominal wall. The uterus was completely adherent to the anterior abdominal wall. Uterus was enlarged. There is a large left benign-appearing ovarian cyst. Small right ovarian cyst. Normal-appearing tubes bilaterally Description of Procedure Patient was prepped draped in the normal sterile fashion placed in the dorsal lithotomy position. Under excellent general endotracheal anesthesia weighted speculum placed in posterior fornix vagina. Anterior lip of the cervix grasped with a single-tooth tenaculum. Uterus sounded to 10cm. Serial dilatation with fragmented dilators performed followed by passage of the 8. SHANNON and the 2. 0.5 cold cup. Next the 16 Cam[place]onian catheter was placed in bladder drained clear urine. The weighted speculum and the single-tooth removed. The gloves were changed. A supraumbilical incision made the Veress needle passed in the abdomen. Abdomen filled with CO2 gas [id number]. The 8mm trocar advanced in the abdomen. Downside visualized no injury seen. Patient placed in Trendelenburg 18? and right left lateral quadrant incision made. 8mm trocars advanced under direct visualization assuring injury. A right upper quadrant incision made and the 8mm trocar advanced under direct visualization assuring injury. The robot was docked. Attention was turned to the vp & general counsel. A large cake of omentum was seen anteriorly to the abdominal wall using sharp dissection with monopolar cautery and sharp dissection was removed. The uterus was mobile noted be markedly enlarged and extremely adherent to the anterior abdominal wall. The there was a large ovarian cyst and this was pierced and drained of clear fluid. The round ligament was noted be markedly adherent on the left and sharp dissection was undertaken. Anteriorly a bladder flap was formed this took quite some time because of the marked amount of scar tissue layer by layer this was brought down until the bladder was noted to be clear of the area to the opposite round ligament which was clamped, burned, cut. Next the left infundibulopelvic structure was skeletonized to remove the left ovary and tube this was clamped, burned, cut and brought to the previously cut round ligament. The utero-ovarian ligament on the right was skeletonized clamped, burned, cut and brought to level of previously cut round ligament. The right fallopian tube was sharply dissected off the ovarian complex and left attached to the origin. The left cardinal broad ligaments were then serially skeletonized clamping burning cutting and hugging the cervix uterus until the large tortuous vessels could be seen the left these were individually clamped, burned, cut. In similar fashion the cardinal broad ligaments on the right were serially skeletonized clamping burning cutting and bringing this down lateral edge until the uterine vessels could be seen right. These were individually clamped, burned. A colpotomy incision was made the cervix uterus left ovary and bilateral tubes removed through the vagina. The vagina closed in continuous running 0V lock from lateral edge to lateral edge back to the midline. Irrigation undertaken until clear and the estimated blood loss of 25cc. [place] term was placed over the raw surface areas. The robot was undocked. The gas removed from the abdomen. The trocars removed the incisions closed with 4 Monocryl glue. The instruments withdrawn the patient went recovery in satisfactory condition. All sponge, needle, instrument counts were correct. Were no immediate complications Estimated Blood Loss 25 Drains No Packing No Pathology Yes Complications No immediate complications Condition Stable Disposition PACU
--- NOTE | 2024-06-12 10:32 | P.DS_ITS ---
DS: Admitting Diagnosis Discharge Date 06/13/2024 Admitting Diagnosis Pelvic pain/enlarged uterus/excessive bleeding DS: Discharge Diagnosis Discharge Diagnosis (1) Pelvic pain: Code(s): R10.2 - Pelvic and perineal pain Status: Acute (2) Right ovarian cyst: Code(s): N83.201 - Unspecified ovarian cyst, right side Status: Acute (3) Enlarged uterus: Code(s): N85.2 - Hypertrophy of uterus Status: Acute (4) Menorrhagia: Code(s): N92.0 - Excessive and frequent menstruation with regular cycle Status: Acute DS: Summary Hospital Course Reason for hospitalization: The patient was admitted on 06/12/2024 for robotic hysterectomy bilateral salpingectomy and left oophorectomy. She underwent that procedure plus extensive lysis of adhesions. Please see the operative report for full details Hospital Course: The patient's hospital course unremarkable. She remained afebrile. She was up, voiding without difficulty, eating regular diet, ambulating, and generally without complaints. Time Spent with Patient Time attestation: Total time spent providing and/or coordinating discharge services: Exam Const: General: cooperative, healthy appearing and comfortable HENMT: Head: normal to inspection Resp: Effort & Inspection: normal respiratory effort Cardio: Rate: regular rate Rhythm: regular rhythm Heart sounds: S1 normal heart sound present and S2 normal heart sound present GI: Inspection: normal to inspection and incision (Wounds are clean dry and intact) Auscultation: normal bowel sounds DS: Data Data Completed and Pending Pending studies at discharge: Pending at discharge 06/12/24 10:15 Surgical [PTH] Routine Labs on day of discharge: Labs from last 24 hours 06/12/24 08:46 POC Urine HCG, Qual Negative Discharge Plan Discharge Patient Disposition: Home Patient Language: Lithuanian Stand Alone Forms: General Discharge Instructions Follow-up/Referrals: Raz Alvarez MD [Physician] - Discharge Medications: New hydrocodone-acetaminophen 5-325 mg tablet 1 tablet PO Q4H PRN (Reason: pain) Qty: 20 0RF No Action buspirone 5 mg Tablet 5 mg PO DAILY escitalopram oxalate 20 mg Tablet 20 mg PO DAILY pantoprazole 40 mg tablet,delayed release (DR/EC) 40 mg PO DAILY
[2024-06-12] MEDS: fentaNYL CITRATE INJ (*CRX) 100 MCG/2 ML VIAL 25 MCG IV PUSH ×4 (11:00→11:18)
[2024-06-12] MEDS: SCOPOLAMINE 1 MG PATCH 1 PATCH TRANSDERM (11:22)
--- NOTE | 2024-06-12 11:49 | PC.NURSE ---
Patient transferred to post room #292 via bed. Support person present. Oriented to unit, room, information board, and admission packet Patient verbalizes understanding. Pt states she feels like she has to have a bowel movement, discussed that this is a normal feeling for this type of surgery but offered a bedpan. Pt assisted on the bedpan, she attempted to have a bowel movement but was unable. will try again later or when attempt to get her up to the bathroom in a couple of hours to try and go.
[2024-06-12] MEDS: DEXTROSE 5%/LACTATED RINGERS 1,000 ML 125 ML IV CONT (12:24)
--- NOTE | 2024-06-12 13:46 | PC.NURSE ---
Pt asking for anand to be removed and for assistance to the bathroom to have a bowel movement. Anand removed and pt assisted up the bathroom. She tolerated ambulating well. Pt's mother in the room, I left her in the bathroom and told her and showed her the call light. both verbalized understanding
[2024-06-12] MEDS: SIMETHICONE 80 MG TAB.CHEW PO ×2 (14:15→17:04)
--- NOTE | 2024-06-12 14:15 | PC.NURSE ---
Pt unable to have a bowel movement, pt assisted back to bed. Call light within reach. Pt told to call out next time she needs to get up for assistance, verbalized understanding.
[2024-06-12] MEDS: KETOROLAC 30 MG/ML VIAL (*BKC) IV PUSH ×2 (15:04→21:10)
[2024-06-12] MEDS: DOCUSATE SODIUM 100 MG CAPSULE PO (17:04)
[2024-06-13] MEDS: KETOROLAC 30 MG/ML VIAL (*BKC) IV PUSH (04:05)
[2024-06-13] MEDS: ACETAMINOPHEN 500 MG TABLET 1000 MG PO (04:05)
[2024-06-13 04:10] VITALS: BP 128/79; PULSE 70; RESP 18; TEMP 36.6; O2SAT 99
[2024-06-13 04:47] LABS: Basophils Absolute Auto 0.1 K/mm3 (0.0-0.1); Basophils Percent Auto 0.4 % (0.2-1.2); Hematocrit 36.2 % (37.0-47.0); Hemoglobin 11.8 g/dL (12.0-15.0); Immature Granulocyte Absolute 0.05 K/mm3 (0.00-0.031); Immature Granulocyte Percent A 0.4 % (0-0.5); Lymphocytes Absolute Auto 1.36 K/mm3 (0.9-3.2); Lymphocytes Percent Auto 10.6 % (18.3-44.2); Mean Corpuscular HGB Conc 32.6 g/dl (32-36); Mean Corpuscular Hemoglobin 29.1 pg (26-34); Mean Corpuscular Volume 89.4 fl (80-100); Mean Platelet Volume 10.6 fl (7.4-10.4); Monocytes Absolute Auto 0.8 K/mm3 (0.1-0.6); Monocytes Percent Auto 6.3 % (2.6-8.5); Neutrophils Absolute Auto 10.5 K/mm3 (1.3-6.7); Neutrophils Percent Auto 82.3 % (45.5-73.1); Platelet Count Result 230 k/mm3 (150-375); Red Blood Count 4.05 M/mm3 (4.2-5.4); Red Cell Distribution Width 14.1 % (11.5-14.5); White Blood Count 12.8 K/mm3 (4.5-10.0)
--- NOTE | 2024-06-13 07:42 | PM.GYNPNOP ---
SKIVER S[employer] LININGS - A/P Assessment and plan (1) Pelvic pain: Code(s): R10.2 - Pelvic and perineal pain Status: Acute (2) Left ovarian cyst: Code(s): N83.202 - Unspecified ovarian cyst, left side Status: Acute (3) Enlarged uterus: Code(s): N85.2 - Hypertrophy of uterus Status: Acute (4) Menorrhagia: Code(s): N92.0 - Excessive and frequent menstruation with regular cycle Status: Acute Plan home, f/u 2 weeks Postoperative Procedures: Procedures Operation Date: 06/12/24 09:30 Actual Procedure Side Surgeon p Robotic Assisted Total Vaginal Hysterectomy with Bilateral Salpingectomy, Left Oophorectomy, Extensive Lysis of Adhesions Left Raz Lopes MD Time Spent With Patient Time: Total time spent is greater than 50% in coordination of care (as documented) at patient's floor/unit and/or counseling patient: Time with patient: less than 15 minutes [employer]INGS- PN:Subj Post-Op Subjective Date/time seen: 06/13/24 07:42 Subjective: patient reports feeling better, patient has no complaints, patient desires discharge, pain is well controlled and patient is tolerating oral intake Exam Const: General: cooperative, healthy appearing and comfortable HENMT: Head: normal to inspection Resp: Effort & Inspection: normal respiratory effort Cardio: Rate: regular rate Rhythm: regular rhythm Heart sounds: S1 normal heart sound present and S2 normal heart sound present GI: Inspection: normal to inspection and incision (Wounds are clean dry and intact) Auscultation: normal bowel sounds SKIVER S[employer] LININGS - PN: Obj Data Vital Signs Vital Signs: Vital Signs - 24 hr 06/12/24 08:46 06/12/24 10:43 06/12/24 10:55 Temperature 97 F L 97.0 F L Pulse Rate 55 L 85 83 Respiratory Rate 28 H 24 H Blood Pressure 127/94 H 131/71 136/72 Pulse Oximetry 98 93 100 Oxygen Delivery Room Air Simple Face Mask Simple Face Mask Oxygen Flow Rate 8 8 06/12/24 11:10 06/12/24 11:25 06/12/24 11:40 Temperature Pulse Rate 91 80 72 Respiratory Rate 20 20 20 Blood Pressure 135/74 128/69 119/71 Pulse Oximetry 94 94 98 Oxygen Delivery Room Air Room Air Room Air Oxygen Flow Rate 06/12/24 12:10 06/12/24 12:10 06/12/24 13:50 Temperature 97.5 F L Pulse Rate 79 Respiratory Rate 20 Blood Pressure 131/79 Pulse Oximetry 95 95 Oxygen Delivery Nasal Cannula Room Air Oxygen Flow Rate 2 06/12/24 15:10 06/12/24 19:00 06/12/24 19:00 Temperature 97.2 F L 97.9 F Pulse Rate 61 65 Respiratory Rate 18 18 Blood Pressure 126/85 145/87 H Pulse Oximetry 97 99 Oxygen Delivery Room Air Oxygen Flow Rate 06/12/24 23:00 06/13/24 04:10 06/13/24 04:10 Temperature 98.2 F 97.8 F Pulse Rate 67 70 Respiratory Rate 16 18 Blood Pressure 134/85 128/79 Pulse Oximetry 100 99 Oxygen Delivery Room Air Oxygen Flow Rate Intake/Output Intake/Output: Intake & Output 06/10/24 06/11/24 06/12/24 06/13/24 23:59 23:59 23:59 23:59 Intake Total 2201 Output Total 1730 Balance 471 Meds/Results Medications: Active Medications Generic Name Dose Route Start Last Admin Trade Name Freq PRN Reason Stop Dose Admin Acetaminophen 1,000 mg 06/12/24 15:00 06/13/24 04:05 Acetaminophen 500 Mg Tablet PO 1,000 mg Q6H ALANNA Administration Docusate Sodium 100 mg 06/12/24 17:00 06/12/24 17:04 Docusate Sodium 100 Mg Capsule PO 100 mg BID ALANNA Administration Enoxaparin Sodium 40 mg 06/13/24 09:00 Enoxaparin 40 Mg/0.4 Ml Syringe SUB-Q DAILY ALANNA Dextrose/Lactated Ringer's 1,000 mls @ 125 mls/hr 06/12/24 11:49 06/12/24 20:24 Dextrose 5%/Lactated Ringers IV CONT Infused .Q8H ALANNA Infusion Ibuprofen 600 mg 06/13/24 09:00 Ibuprofen 600 Mg Tablet PO Q6H ALANNA Naloxone HCl 0.1 mg 06/12/24 11:49 Naloxone Hcl 0.4 Mg/Ml Vial IV PUSH Q2M PRN Respiratory rate less than 10 Ondansetron HCl 4 mg 06/12/24 11:49 Ondansetron Inj 4 Mg/2 Ml Vial IV PUSH Q6H PRN Nausea And Vomiting Oxycodone HCl 5 mg 06/12/24 11:49 Oxycodone Hcl (*Crx) 5 Mg Tab Ir PO Q4H PRN Pain Rated 4-6 Oxycodone HCl 10 mg 06/12/24 11:49 Oxycodone Hcl (*Crx) 5 Mg Tab Ir PO Q6H PRN Pain Rated 7-10 Simethicone 80 mg 06/12/24 12:00 06/12/24 17:04 Simethicone 80 Mg Tab.Chew PO 80 mg TIDWM ALANNA Administration Labs 06/13/24 04:15 Labs: Laboratory Results - last 24 hr 06/12/24 06/13/24 08:46 04:15 WBC 12.8 H RBC 4.05 L Hgb 11.8 L Hct 36.2 L MCV 89.4 MCH 29.1 MCHC 32.6 RDW 14.1 Plt Count 230 MPV 10.6 H Immature Gran % (Auto) 0.4 Neut % (Auto) 82.3 H Lymph % (Auto) 10.6 L [place] % (Auto) 6.3 Eos % (Auto) 0.0 Baso % (Auto) 0.4 Lymph # (Auto) 1.36 [place] # (Auto) 0.8 H Eos # (Auto) 0.0 Baso # (Auto) 0.1 Abs Immat Gran (auto) 0.05 H Absolute Neuts (auto) 10.5 H Absolute Nucleated RBC 0.000 Nucleated RBC % 0.0 POC Urine HCG, Qual Negative
[2024-06-13 07:54] VITALS: BP 126/71; PULSE 53; RESP 18; TEMP 36.4; O2SAT 98
[2024-06-13] MEDS: SIMETHICONE 80 MG TAB.CHEW PO (08:24)
[2024-06-13] MEDS: ENOXAPARIN 40 MG/0.4 ML SYRINGE SUB-Q (08:24)
[2024-06-13] MEDS: DOCUSATE SODIUM 100 MG CAPSULE PO (08:24)
== END 2024-06-13 10:16 | disposition home or self-care (01) ==
LOC: ANHSURGERY 07:40 → ANHOB2 11:50
PROVIDERS: Anesthesiology; PCP Physician Assistant; Visit Provider Obstetrics & Gynecology
PROC: (CPT 58552; principal; 2024-06-12 09:30)
DX: N81.4 Uterovaginal prolapse, unspecified (principal); N92.0 Excessive and frequent menstruation with regular cycle; N84.0 Polyp of corpus uteri; N88.8 Other specified noninflammatory disorders of cervix uteri; N80.03 Adenomyosis of the uterus; D27.1 Benign neoplasm of left ovary
CPT/HCPCS: 58552; S2900; 36415; 85025; 88307; 99199; A9270; J0690; J1100; J1171; J1650; J1885; J2003; J2250; J2405; J2704; J3010; J7030; J7120; J7121

== ENCOUNTER 2024-11-02 01:50 | Day surgery (SDC) | payer OTHER, SELFPAY ==
[2024-10-22 09:06] VITALS: BMI 41.4
[2024-11-02 07:29] VITALS: BP 129/79; PULSE 50; RESP 18; TEMP 36.1; O2SAT 99
[2024-11-02] MEDS: LACTATED RINGERS 1,000 ML 150 ML IV CONT (07:40)
--- NOTE | 2024-11-02 07:52 | WPDANESEPPF ---
Anes - Initial Pre Proc Eval Procedure: Operation Date: 11/02/24 08:30 Proposed Procedures p Screening Colonoscopy - Rene Davila MD Date/Time: 11/02/24 07:52 Surgeon: Rene Davila MD Pre Op Diagnosis: Family history of malignant neoplasm of digestive Patient Data Age: 44 Gender: F Height: 1.7 m Weight: 118.6 kg Last Vital Signs Temp 97 F L 11/02/24 07:29 Pulse 50 L 11/02/24 07:29 Resp 18 11/02/24 07:29 BP 129/79 11/02/24 07:29 Pulse Ox 99 11/02/24 07:29 O2 Del Method Room Air 11/02/24 07:29 Allergies Allergy/AdvReac Type Severity Reaction Status Date / Time No Known Allergies Allergy Verified 11/02/24 07:27 Home Medications ?Medication ?Instructions ?Recorded ?Confirmed ?Type buspirone 5 mg tablet 5 mg PO DAILY 05/14/22 10/22/24 History escitalopram oxalate 20 mg tablet 20 mg PO DAILY 05/14/22 10/22/24 History pantoprazole 40 mg tablet,delayed 40 mg PO DAILY 06/08/24 10/22/24 History release hydrocodone 5 mg-acetaminophen 325 1 tablet PO Q4H PRN pain #20 tabs 06/12/24 10/22/24 Rx mg tablet Patient hx anesthesia problems: none Family hx anesthesia problems: none Results Review: All pre-operative results and documents have been reviewed as part of the pre-operative evaluation. [facility] Past Medical History Medical History Morbid obesity Social History Social History Years smoked: 25 Smoking status: Current every day smoker Tobacco type: cigarettes Alcohol intake: current Drinks per week: 2 Alcohol use details: RARE Substance use: current Substance use type: marijuana Other substance usage details: Daily Living arrangements: with family Additional living arrangements comments: CHILDREN Spiritual care concerns: No Anes - Eval Final PreProcedure Day of Procedure 11/02/24 07:52 Patient weight: obese Lungs: normal air movement Airway: Mallampati scale class II Neurological: alert and oriented Last oral intake: >/= 8 hours ASA classification: III Emergent: no Anesthetic plan: proceed Anesthesia type and monitoring: general GIVS and standard monitoring Results Review: All pre-operative results and documents have been reviewed as part of the pre-operative evaluation. BMI 41, smoker, 10-15 cigs/day, no cp or sob. Informed Consent: The patient's anesthetic plan and its attendant risks and benefits were discussed with the patient/family/POA. Questions were solicited and answers provided to the satisfaction of the patient/family/POA.
--- NOTE | 2024-11-02 07:59 | PM.IMHP ---
H&P: HPI History of Present Illness Date/Time: 11/02/24 07:59 Chief Complaint: Family history of colorectal cancer Narrative: This patient has family history of colorectal cancer. her father was recently diagnosed with colon cancer at age 70. Review of Systems Review of Systems: All systems reviewed & are unremarkable except as noted in HPI and below PMFSH Past Medical History Medical History Morbid obesity Social History Social History Years smoked: 25 Smoking status: Current every day smoker Tobacco type: cigarettes Alcohol intake: current Drinks per week: 2 Alcohol use details: RARE Substance use: current Substance use type: marijuana Other substance usage details: Daily Living arrangements: with family Additional living arrangements comments: CHILDREN Spiritual care concerns: No Meds Home Medications and Allergies Home Medications ?Medication ?Instructions ?Recorded ?Confirmed ?Type buspirone 5 mg tablet 5 mg PO DAILY 05/14/22 10/22/24 History escitalopram oxalate 20 mg tablet 20 mg PO DAILY 05/14/22 10/22/24 History pantoprazole 40 mg tablet,delayed 40 mg PO DAILY 06/08/24 10/22/24 History release hydrocodone 5 mg-acetaminophen 325 1 tablet PO Q4H PRN pain #20 tabs 06/12/24 10/22/24 Rx mg tablet Allergies Allergy/AdvReac Type Severity Reaction Status Date / Time No Known Allergies Allergy Verified 11/02/24 07:27 Vital Signs Vital Signs - 24 hr 11/02/24 07:29 Temperature 97 F L Pulse Rate 50 L Respiratory Rate 18 Blood Pressure 129/79 Pulse Oximetry 99 Oxygen Delivery Room Air Exam Const: General: cooperative and healthy appearing Resp: Effort & Inspection: normal respiratory effort and able to speak in complete sentences Auscultation: clear to auscultation bilaterally Cardio: Rate: regular rate Rhythm: regular rhythm GI: Inspection: normal to inspection GI Palp: No No hepatosplenomegaly present Auscultation: normal bowel sounds Rectal Exam: deferred Skin: General skin exam: normal color Psych: Appearance: grossly normal Mental Status: mental status grossly normal Assessment and Plan Assessment and plan (1) Family history of colon cancer: Code(s): Z80.0 - Family history of malignant neoplasm of digestive organs Status: Acute Assessment and Plan: The patient is deemed a good candidate for the procedure. Consent signed. Will proceed.
[2024-11-02 08:48] VITALS: BP 99/43; PULSE 74; RESP 23; O2SAT 97
[2024-11-02 08:58] VITALS: BP 95/65; PULSE 65; RESP 23; O2SAT 99
[2024-11-02 09:08] VITALS: BP 116/73; PULSE 69; RESP 20; O2SAT 99
== END 2024-11-02 09:15 | disposition home or self-care (01) ==
PROVIDERS: PCP Physician Assistant; Referring Provider Physician Assistant; Visit Provider Internal Medicine Gastroenterology
PROC: 0DJD8ZZ Inspection of Lower Intestinal Tract, Via Natural or Artificial Opening Endoscopic (ICD-10-PCS; CPT 45378; principal; 2024-11-02 08:30)
DX: Z12.11 Encounter for screening for malignant neoplasm of colon (principal); K57.30 Diverticulosis of large intestine without perforation or abscess without bleeding; F17.210 Nicotine dependence, cigarettes, uncomplicated; F12.90 Cannabis use, unspecified, uncomplicated; E66.9 Obesity, unspecified; Z68.41 Body mass index [BMI] 40.0-44.9, adult; Z79.891 Long term (current) use of opiate analgesic; Z80.0 Family history of malignant neoplasm of digestive organs
CPT/HCPCS: 45378; J2704; J7120